=== PATIENT | male | born 1940 | race Caucasian/White ===

== ENCOUNTER 2020-01-12 08:32 | Outpatient (RCR) | payer MEDICARE, SELFPAY ==
[2019-11-24 16:16] VITALS: BMI 27.1
--- NOTE | 2019-12-01 07:07 | WPDHPUPDATE1 ---
History and Physical Update Update Date/Time: 12/01/19 07:07 History and Physical has been reviewed, including an updated exam of the patient. There are NO changes in the patient's condition. Risks, benefits, and alternatives have been discussed and questions answered. Patient agrees to proceed with procedure.
[2019-12-01 09:00] VITALS: BP 129/64; PULSE 68; TEMP 36.9; O2SAT 91
--- NOTE | 2019-12-01 09:29 | PM.PROC ---
Procedure Note - Detailed Date of procedure: 12/01/19 Pre-op diagnosis: Bladder wall CA Post-op diagnosis: same Procedure performed: With the patient in the supine position, a 16F Woodard catheter is placed using sterile technique. Using a protective facemask, gown and double layer of gloves Gemcitabine 2gm in 100cc saline is administered through the catheter/into the bladder. The catheter is then plugged. Patient was instructed to lie supine x20min, then to roll both the left and right x20 min. each. Total dwell time will be 60 min., after which the bladder will be drained and catheter removed. Anesthesia: none Surgeon: Lui Ding MD Estimated blood loss (mL): 0 Drains: Yes (16F Woodard) Packing: No Pathology: yes Complications: No immediate complications Condition: stable Disposition: PACU
[2019-12-01 09:30] VITALS: BP 111/65; PULSE 57; O2SAT 95
--- NOTE | 2019-12-01 09:44 | SUR.PHASEII ---
0940: Patient turned to the right side.
[2019-12-01 10:00] VITALS: BP 104/56; PULSE 59; O2SAT 99
--- NOTE | 2019-12-01 10:05 | SUR.PHASEII ---
1000: Patient turned on his left side.
[2019-12-01 10:30] VITALS: BP 114/78; PULSE 61; O2SAT 100
--- NOTE | 2019-12-01 10:52 | SUR.PHASEII ---
1020: Woodard was unclamped and hooked back up to drain the bladder. Patient got dressed and was discharged home at 1050.
--- NOTE | 2019-12-08 11:36 | WPDHPUPDATE1 ---
History and Physical Update Update Date/Time: 12/08/19 11:36 History and Physical has been reviewed, including an updated exam of the patient. There are NO changes in the patient's condition. Risks, benefits, and alternatives have been discussed and questions answered. Patient agrees to proceed with procedure.
[2019-12-14 07:30] VITALS: BP 123/67; PULSE 72; O2SAT 98
[2019-12-14] MEDS: SODIUM CHLORIDE 0.9% IV 23.7 ML, GEMCITABINE HCL 1,000 MG BLADDER ×2 (07:54→07:55)
[2019-12-14 08:26] VITALS: BP 121/69; PULSE 86
[2019-12-14 09:00] VITALS: BP 115/72; PULSE 68
[2019-12-14 09:20] VITALS: BP 104/58; PULSE 56
--- NOTE | 2019-12-22 06:58 | WPDHPUPDATE1 ---
History and Physical Update Update Date/Time: 12/22/19 06:58 History and Physical has been reviewed, including an updated exam of the patient. There are NO changes in the patient's condition. Risks, benefits, and alternatives have been discussed and questions answered. Patient agrees to proceed with procedure.
[2019-12-22] MEDS: SODIUM CHLORIDE 0.9% IV 23.7 ML, GEMCITABINE HCL 1,000 MG BLADDER ×2 (12:00→12:01)
[2019-12-22 12:23] VITALS: BP 149/77; PULSE 72; RESP 18; TEMP 36.4; O2SAT 98
--- NOTE | 2019-12-22 12:37 | PM.PROC ---
Procedure Note - Detailed Date of procedure: 12/22/19 Pre-op diagnosis: Bladder wall CA Post-op diagnosis: same Procedure performed: Catheter placement with Gemcitabine instillation. Description of procedure: With the patient in the supine position, a 16F Woodard catheter is placed using sterile technique. Using a protective facemask, gown and double layer of gloves Gemcitabine 2gm in 100cc saline is administered through the catheter/into the bladder. The catheter is then plugged. Patient was instructed to lie supine x20min, then to roll both the left and right x20 min. each. Total dwell time will be 60 min., after which the bladder will be drained and catheter removed. Surgeon: Lui Ding MD Estimated blood loss (mL): 0 Drains: Yes Packing: No Pathology: none sent Complications: No immediate complications Condition: stable Disposition: PACU
[2019-12-22 12:50] VITALS: BP 105/65; PULSE 56; RESP 16
--- NOTE | 2019-12-22 12:53 | SUR.PHASEII ---
1240; DR STONE INSERTED 16FR FIGUEROA AND INSTILLED CHEMO. PT ROTATED EVERY 20 MINUTES FROM BACK TO LEFT TO RIGHT SIDES.
[2019-12-22 13:20] VITALS: BP 107/75; PULSE 56; RESP 16; O2SAT 98
[2019-12-22 13:50] VITALS: BP 117/76; PULSE 57; RESP 16
--- NOTE | 2019-12-22 14:17 | SUR.PHASEII ---
1350; FIGUEROA DC'D. PT STATES HE IS LEAKING SOME. PT STATES I LEAK EVERY TIME I HAVE THIS DONE . SM AMT LEAKAGE NOTED. GENITAL AREA CLEANED WITH SOAP AND WATER. 1355; FIGUEROA EMPTIED THEN DC'D INTACT. 1415; INSTRUCTIONS GIVEN.
--- NOTE | 2019-12-29 06:48 | WPDHPUPDATE1 ---
History and Physical Update Update Date/Time: 12/29/19 06:48 History and Physical has been reviewed, including an updated exam of the patient. There are NO changes in the patient's condition. Risks, benefits, and alternatives have been discussed and questions answered. Patient agrees to proceed with procedure.
[2019-12-29 12:20] VITALS: BP 115/76; PULSE 57; RESP 18; TEMP 36.6; O2SAT 100
--- NOTE | 2019-12-29 12:29 | SUR.PHASEII ---
1225; PHARMACY NOTIFIED OF PT'S ARRIVAL.
[2019-12-29] MEDS: SODIUM CHLORIDE 0.9% IV 23.7 ML, GEMCITABINE HCL 1,000 MG BLADDER ×2 (12:39)
--- NOTE | 2019-12-29 12:43 | SUR.PHASEII ---
1240; NOTIFIED DR STONE PT AND CHEMO DRUG IS HERE. HE IS IN OR. WILL BE FINISHED IN 10-15 MINUTES. PT AND SPOUSE UPDATED.
--- NOTE | 2019-12-29 12:49 | SUR.PHASEII ---
1250; DR STONE PLACED 16FR FIGUEROA, INSTILLED CHEMO, THEN CATHETER CLAMPED, ALL PER DR STONE. PT LAYING ON BACK. 20 MINUTES.
[2019-12-29 12:50] VITALS: BP 107/53; PULSE 55; RESP 16; O2SAT 100
--- NOTE | 2019-12-29 13:14 | PM.PROC ---
Procedure Note - Detailed Date of procedure: 12/29/19 Pre-op diagnosis: Bladder wall CA Post-op diagnosis: same Procedure performed: Gemcitabine instillation into bladder Description of procedure: With the patient in the supine position, a 16F Woodard catheter is placed using sterile technique. Using a protective facemask, gown and double layer of gloves Gemcitabine 2gm in 100cc saline is administered through the catheter/into the bladder. The catheter is then plugged. Patient was instructed to lie supine x20min, then to roll both the left and right x20 min. each. Total dwell time will be 60 min., after which the bladder will be drained and catheter removed. Anesthesia: none and other Surgeon: Lui Ding MD Drains: No Packing: No Pathology: none sent Complications: No immediate complications Condition: stable Disposition: PACU
--- NOTE | 2019-12-29 13:16 | SUR.PHASEII ---
1315; PT TURNED TO RT SIDE.
[2019-12-29 13:20] VITALS: BP 97/58; PULSE 50; RESP 16; O2SAT 99
--- NOTE | 2019-12-29 13:38 | SUR.PHASEII ---
1335; TURNED TO LT SIDE.
[2019-12-29 13:50] VITALS: BP 102/64; PULSE 50; RESP 18
--- NOTE | 2019-12-29 14:38 | SUR.PHASEII ---
1355; BLADDER EMPTIED. FIGUEROA REMOVED INTACT. 141; DC INSTRUCTIONS GIVEN.
--- NOTE | 2020-01-05 07:19 | P.HP_ITS ---
History of Present Illness History of Present Illness Consent: Risks, benefits, and alternatives have been discussed and questions answered. Patient agrees to proceed with procedure. Chief complaint: Bladder wall CA Narrative: Alfredo Wright is a 79 year old male here for 5th of 6-planned bladder chemotherapy instillations for recurrent bladder cancer. Review of Systems Cardiovascular: Cardiovascular: Denies chest pain, Denies lightheadedness, Denies palpitations and Denies dyspnea Respiratory: Respiratory: Denies dyspnea Gastrointestinal: Gastrointestinal: Denies diarrhea, Denies nausea and Denies vomiting Genitourinary: Genitourinary: Denies hematuria and Denies dysuria Endocrine: Endocrine: Denies palpitations PMFSH Past Medical History Medical History Hematuria Surgical History Surgical History H/O prostatectomy Family History Family History Father Family history of liver disease Mother Family history of malignant neoplasm Social History Social History Smoking status: Never smoker Second hand tobacco smoke exposure: No Alcohol intake: current Meds Home Medications and Allergies Home Medications Medication Instructions Recorded Confirmed Type atorvastatin 20 mg tablet 20 mg PO DAILY 09/15/19 11/24/19 History hydrochlorothiazide 12.5 mg tablet 12.5 mg PO DAILY 09/15/19 11/24/19 History warfarin 1 mg tablet 2 mg PO WEEKLY 09/15/19 11/24/19 History warfarin 4 mg tablet 4 mg PO DAILY 09/15/19 11/24/19 History meclizine 25 mg tablet 25 mg PO TID PRN #90 tablet 12/22/19 Rx Allergies Allergy/AdvReac Type Severity Reaction Status Date / Time hydrocodone AdvReac Mild NAUSEA AND Verified 11/24/19 16:27 VOMITING morphine AdvReac Mild NAUSEA AND Verified 11/24/19 16:27 VOMITING codeine AdvReac Unknown Nausea and Verified 11/24/19 16:27 Vomiting Exam Const: General: no acute distress Resp: Effort & Inspection: normal respiratory effort GI: Inspection: non-distended GI Palp: No abdominal tenderness and No Guarding due to palpation present (GI) Auscultation: normal bowel sounds Assessment and Plan Assessment and plan (1) Bladder cancer: Code(s): C67.9 - Malignant neoplasm of bladder, unspecified Status: Acute Assessment and Plan: * Gemcitabine instillation
[2020-01-05 12:15] VITALS: BP 119/67; PULSE 78; RESP 18; TEMP 36.6; O2SAT 97
[2020-01-05] MEDS: SODIUM CHLORIDE 0.9% IV 23.7 ML, GEMCITABINE HCL 1,000 MG BLADDER ×2 (12:28→12:29)
--- NOTE | 2020-01-05 12:33 | SUR.PHASEII ---
1230; DR STONE INSERTED FIGUEROA. INSTILLED CHEMO INTO BLADDER. FIGUEROA CLAMPED. PT TOLERATED WELL. SPOUSE AT BEDSIDE. PT ON BACK FOR 20 MINUTES. THEN ROTATES TO LEFT SIDE AND RIGHT SIDE, 20 MINUTES EACH.
[2020-01-05 12:45] VITALS: BP 98/59; PULSE 58; RESP 16
[2020-01-05 13:15] VITALS: BP 96/57; PULSE 56; RESP 16
--- NOTE | 2020-01-05 13:29 | P.OP_ITS ---
Procedure Note - Detailed Date of procedure: 01/05/20 Pre-op diagnosis: Bladder wall CA Post-op diagnosis: same Procedure performed: Gemcitabine instillation into bladder. Description of procedure: With the patient in the supine position, a 16F Woodard catheter is placed using sterile technique. Using a protective facemask, gown and double layer of gloves Gemcitabine 2gm in 100cc saline is administered through the catheter/into the bladder. The catheter is then plugged. Patient was instructed to lie supine x20min, then to roll both the left and right x20 min. each. Total dwell time will be 60 min., after which the bladder will be dr elidia and catheter removed. Anesthesia: none Surgeon: Lui Ding MD Estimated blood loss (mL): 0 Drains: Yes (16F Woodard) Packing: No Pathology: none sent Complications: No immediate complications Condition: stable Disposition: PACU
[2020-01-05 13:50] VITALS: BP 92/53; PULSE 55; RESP 16
--- NOTE | 2020-01-10 16:17 | PM.IMHP ---
H&P: HPI History of Present Illness Chief complaint: Bladder wall CA Narrative: Alfredo Wright is a 79 year old male, well known to [facility] and our practice, with history of recurrent bladder tumors. Pt. presents for 6th of planned six bladder chemotherapy instillations. Review of Systems Cardiovascular: Cardiovascular: Denies chest pain, Denies lightheadedness, Denies palpitations and Denies dyspnea Respiratory: Respiratory: Denies dyspnea Gastrointestinal: Gastrointestinal: Denies diarrhea, Denies nausea and Denies vomiting Genitourinary: Genitourinary: Denies hematuria and Denies dysuria Endocrine: Endocrine: Denies palpitations PMFSH Past Medical History Medical History Hematuria Surgical History Surgical History H/O prostatectomy Family History Family History Father Family history of liver disease Mother Family history of malignant neoplasm Social History Social History Smoking status: Never smoker Second hand tobacco smoke exposure: No Alcohol intake: current Meds Home Medications and Allergies Home Medications Medication Instructions Recorded Confirmed Type atorvastatin 20 mg tablet 20 mg PO DAILY 09/15/19 11/24/19 History hydrochlorothiazide 12.5 mg tablet 12.5 mg PO DAILY 09/15/19 11/24/19 History warfarin 1 mg tablet 2 mg PO WEEKLY 09/15/19 11/24/19 History warfarin 4 mg tablet 4 mg PO DAILY 09/15/19 11/24/19 History meclizine 25 mg tablet 25 mg PO TID PRN #90 tablet 12/22/19 Rx Allergies Allergy/AdvReac Type Severity Reaction Status Date / Time hydrocodone AdvReac Mild NAUSEA AND Verified 11/24/19 16:27 VOMITING morphine AdvReac Mild NAUSEA AND Verified 11/24/19 16:27 VOMITING codeine AdvReac Unknown Nausea and Verified 11/24/19 16:27 Vomiting Exam Const: General: no acute distress Resp: Effort & Inspection: normal respiratory effort GI: Inspection: non-distended GI Palp: No abdominal tenderness and No Guarding due to palpation present (GI) Auscultation: normal bowel sounds Assessment and Plan Assessment and plan (1) Bladder cancer: Code(s): C67.9 - Malignant neoplasm of bladder, unspecified Status: Acute Assessment and Plan: Gemcitabine bladder instillation.
--- NOTE | 2020-01-12 06:33 | WPDHPUPDATE1 ---
History and Physical Update Update Date/Time: 01/12/20 06:33 History and Physical has been reviewed, including an updated exam of the patient. There are NO changes in the patient's condition. Risks, benefits, and alternatives have been discussed and questions answered. Patient agrees to proceed with procedure.
[2020-01-12 09:00] VITALS: BP 98/62; PULSE 81; RESP 14
--- NOTE | 2020-01-12 09:00 | PM.PROC ---
Procedure Note - Detailed Date of procedure: 01/12/20 Pre-op diagnosis: Bladder wall CA Post-op diagnosis: same Procedure performed: Gemcitabine instillation Description of procedure: With the patient in the supine position, a 16F Woodard catheter is placed using sterile technique. Using a protective facemask, gown and double layer of gloves Gemcitabine 2gm in 100cc saline is administered through the catheter/into the bladder. The catheter is then plugged. Patient was instructed to lie supine x20min, then to roll both the left and right x20 min. each. Total dwell time will be 60 min., after which the bladder will be drained and catheter removed. Anesthesia: none Surgeon: Lui Ding MD Estimated blood loss (mL): 0 Drains: No Packing: No Pathology: none sent Complications: No immediate complications Condition: stable Disposition: PACU
[2020-01-12 09:30] VITALS: BP 106/62; PULSE 51; RESP 14
[2020-01-12] MEDS: SODIUM CHLORIDE 0.9% IV 23.7 ML, GEMCITABINE HCL 1,000 MG BLADDER ×2 (09:52→09:53)
--- NOTE | 2020-01-12 09:55 | SUR.PHASEII ---
0995 [employer] INSERTED FIGUEROA CATHETER. DR STONE HERE AND INSTILLED CHEMOTHERAPY.FIGUEROA CATHETER PLUGGED, PT TURNED SIDE TO SIDE AND BACK FOR 20 MIN EACH. THEN FIGUEROA WILL BE DRAINED AND REMOVED.
[2020-01-12 10:00] VITALS: BP 104/61; PULSE 52; RESP 14
[2020-01-12 10:30] VITALS: BP 100/59; PULSE 51; RESP 14
[2020-01-12 11:00] VITALS: BP 115/75; PULSE 57; RESP 14; O2SAT 14
== END 2020-02-29 23:59 | disposition home or self-care (01) ==
LOC: ANHSURGERY 08:32
PROVIDERS: Urology; PCP Family Medicine; Visit Provider Urology
PROC: 3E1K78Z Irrigation of Genitourinary Tract using Irrigating Substance, Via Natural or Artificial Opening (ICD-10-PCS; CPT 51700; principal; 2019-12-01 09:00)
DX: C67.9 Malignant neoplasm of bladder, unspecified (principal)
CPT/HCPCS: 51720; J9201

== ENCOUNTER 2021-01-17 07:36 | Outpatient (CLI) | payer MEDICARE, SELFPAY ==
--- NOTE | 2021-01-17 07:40 | ECHO_ITS ---
Patient Info Name: Alfredo Wright Age: 80 years : 1940 Gender: Male Ht: 72 in Wt: 205 lbs BSA: 2.19 m2 HR: 65 bpm BP: 130 / 78 mmHg Heart Rhythm: Sinus Rhythm Technical Quality: Good Exam Date: 01/17/2021 8:02 AM Exam Location: [facility] Patient Status: Outpatient Admit Date: 01/17/2021 Staff Ordering Physician: Christopher Willis PA-C Pre K Lead Teacher: Juliet Valencia RDCS Attending Provider: Christopher Willis PA-C Referring Physician: Lazaro SOTO; Exam Type: CA echo doppler color flow Study Info Indications R60.0 - Localized edema Complete two-dimensional, color flow and Doppler transthoracic echocardiogram is performed. Strain analysis performed. Summary 1. Complete two-dimensional, color flow and Doppler transthoracic echocardiogram is performed. 2. Strain analysis performed. 3. Left ventricular chamber dimension is mildly enlarged. 4. Left ventricular systolic function is normal, estimated at 60-65%. 5. There is mild asymmetric septal increased left ventricular wall thickness. 6. The left ventricular diastolic function is grade I diastolic dysfunction. 7. Global longitudinal strain is borderline at -16 %. 8. Left atrial chamber dimension is mildly enlarged. 9. There is mild aortic valve regurgitation. 10. There is mild mitral valve regurgitation. 11. There is mild tricuspid valve regurgitation. 12. There is mild pulmonic regurgitation. Left Ventricle Left ventricular chamber dimension is mildly enlarged. Left ventricular systolic function is normal, estimated at 60-65%. There is mild asymmetric septal increased left ventricular wall thickness. The left ventricular diastolic function is grade I diastolic dysfunction. Global longitudinal strain is borderline at -16 %. Right Ventricle Right ventricular chamber dimension is normal. Right ventricular systolic function is normal. Left Atria Left atrial chamber dimension is mildly enlarged. Right Atria Right atrial chamber dimension is normal. Atrial Septum Intact interatrial septum visualized by color flow imaging. Aortic Valve The aortic valve is trileaflet. There is mild aortic valve sclerosis. There is no aortic valve stenosis. There is mild aortic valve regurgitation. Pulmonic Valve The pulmonic valve is normal. There is no pulmonic valve stenosis. There is mild pulmonic regurgitation. Mitral Valve The mitral valve has normal leaflets. There is no mitral valve stenosis. There is mild mitral valve regurgitation. Tricuspid Valve The tricuspid valve leaflets are normal. There is no significant tricuspid valve stenosis. There is mild tricuspid valve regurgitation. No pulmonary hypertension, estimated pulmonary arterial systolic pressure is 30 mmHg. Pericardium/Pleural The pericardium appears normal. There is no pericardial effusion. Inferior Vena Cava Normal inferior vena cava with >50% collapse upon inspiration consistent with normal right atrial pressure, 10 mmHg. Aorta The aortic root size at the sinus of Valsalva is borderline dilated. Left Ventricular Outflow Tract Name Value Normal LVOT 2D LVOT Diameter 2.0 cm LVOT Doppler
== END 2021-01-17 07:37 | disposition home or self-care (01) ==
LOC: ANHCARD 07:37
PROVIDERS: PCP Physician Assistant; Visit Provider Physician Assistant
DX: R60.0 Localized edema (principal); I08.3 Combined rheumatic disorders of mitral, aortic and tricuspid valves
CPT/HCPCS: 93306

== ENCOUNTER 2021-03-28 09:36 | Outpatient (CLI) | payer MEDICARE, SELFPAY ==
--- NOTE | ~2021-03-28 | MR_ITS ---
EXAMINATION: MR lumbar spine wo con EXAM DATE: 03/28/2021 10:50 INDICATION: Low back pain. Radiculopathy. Difficulty walking. TECHNIQUE: Multi-sequential, multiplanar MR images of the lumbar spine were obtained without contrast . Sagittal T1, T2, T2 fat saturation images. Axial T2 weighted images. Comparison is made to prior examination from 04/07/2015. FINDINGS: There is moderate to severe loss of the disc height at L2-3, moderate at L5-S1. There is 4 mm anterolisthesis L2 on L3 with chronic bilateral L2 spondylolysis. The conus medullaris terminates at the L1/2 level and has normal signal intensity and morphology. There are no suspicious marrow sig nal abnormalities. Renal cysts. Mild lumbar levoscoliosis. Level by level evaluation: T12-L1: Disc does not extend beyond the endplate margin. Facet arthropathy: Mild. Neural foraminal stenosis: No stenosis. Central canal stenosis: No stenosis. L1-L2: Disc does not extend beyond the endplate margin. Facet arthropathy: Mild to moderate. Neural foraminal stenosis: No stenosis. Central canal stenosis: No stenosis. L2-L3: There is a large diffuse disc bulge. Facet arthropathy: Moderate to severe. Neural foraminal stenosis: Moderate to severe bilateral. Central canal stenosis: Mild to moderate. L3-L4: There is a moderate diffuse disc bulge. Facet arthropathy: Moderate . Ligamentum flavum enlargement. Neural foraminal stenosis: Mild to moderate bilateral. Central canal stenosis: Mild to moderate. L4-L5: There is a moderate diffuse disc bulge. Facet arthropathy: Mild to moderate. Neural foraminal stenosis: Moderate to severe left, moderate right. Central canal stenosis: Mild to moderate. L5-S1: There is a moderate diffuse disc bulge. Facet arthropathy: Mild to moderate. Neural foraminal stenosis: Moderate to severe bilateral. Central canal stenosis: Mild. IMPRESSION: 1. Chronic L2 spondylolysis, grade 1 anterolisthesis and moderate to severe neural foraminal stenosi s L2/3. 2. Moderate to severe neural foraminal stenosis bilaterally L5-S1 and on the left at L4-5. 3. Lesser spondylosis above. Reviewed, dictated and finalized at location A. IMPRESSION: 1. Chronic L2 spondylolysis, grade 1 anterolisthesis and moderate to severe ne ural foraminal stenosis L2/3. 2. Moderate to severe neural foraminal stenosis bilaterally L5-S1 and on the l eft at L4-5. 3. Lesser spondylosis above.
== END 2021-03-28 09:37 | disposition home or self-care (01) ==
PROVIDERS: PCP Family Medicine; Visit Provider Nurse Practitioner Family
DX: M54.5 Low back pain (principal); M43.16 Spondylolisthesis, lumbar region; M54.16 Radiculopathy, lumbar region; M48.061 Spinal stenosis, lumbar region without neurogenic claudication
CPT/HCPCS: 72148

== ENCOUNTER 2021-05-15 13:46 | Emergency (ER) | payer MEDICARE, SELFPAY ==
--- NOTE | ~2021-05-15 | XR_ITS ---
EXAMINATION: XR lumbar spine 2-3V DATE: 05/15/2021 15:35 INDICATION: Low back pain. Fall. TECHNIQUE: 3 views of lumbar spine were obtained. COMPARISON: Lumbar spine MRI 03/28/2021 FINDINGS: There is 8 degrees levocurvature of lumbar spine. There is 3 mm anterolisthesis of L2 on L3 . There is a compression fracture of L1 with 1/5 loss of height. There is severely decreased disc hei ght at L2-L3 and L5-S1 and mildly decreased disc height at L4-L5. There are endplate osteophytes at a ll levels. There is multilevel facet joint osteoarthritis, severe at some levels. IMPRESSION: 1. L1 compression fracture, new from 03/28/2021. 2. Severe lumbar spondylosis. Reviewed, dictated and finalized at location A.
--- NOTE | ~2021-05-15 | XR_ITS ---
XR hip RT 2V w AP pelvis 05/15/2021 15:35 Indication: Right hip pain after fall Procedure: AP pelvis and 2 views right hip Comparison: No prior studies for comparison. 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 There is lower lumbar spondylosis with levoscoliosis. Mild osteitis pubis. No fracture or traumatic malalignment. Impression: 1: No acute fracture. Reviewed, dictated and finalized at location A. Impression: 1: No acute fracture.
[2021-05-15 14:44] VITALS: BP 120/64; PULSE 78; RESP 15; TEMP 36.4; O2SAT 98
--- NOTE | 2021-05-15 19:07 | ED.FALL ---
HPI - Fall General Chief Complaint: Fall Stated Complaint: low back pain, fall Time Seen by Provider: 05/15/21 18:29 Source: patient Mode of arrival: ambulatory Limitations: no limitations History of Present Illness HPI Narrative: Patient is an 80 year old male who presents with complaints of lower back pain and right hip pain after a fall approximately 3 days ago. Patient reports tripping on a hose and falling on glass. Patient reports that he is currently taking anticoagulation medication. He denies hitting head or neck, denies dizziness prior to fall.. He denies chest pain or shortness of breath. Patient denies all other complaints at this time. Patient reports taking Tylenol with moderate relief of pain. Related Data Home Medications Medication Instructions Recorded Confirmed atorvastatin 20 mg tablet 20 mg PO DAILY 09/15/19 03/13/21 warfarin 1 mg tablet 2 mg PO WEEKLY 09/15/19 03/13/21 warfarin 4 mg tablet 4 mg PO DAILY 09/15/19 03/13/21 acetaminophen 325 mg tablet 325 mg PO Q6H PRN 01/10/21 03/13/21 carboxymethylcellulose sodium 1 % 1 drp EACH EYE BID 01/10/21 03/13/21 eye liquid gel drops Allergies Allergy/AdvReac Type Severity Reaction Status Date / Time hydrocodone AdvReac Mild NAUSEA AND Verified 05/15/21 18:20 VOMITING morphine AdvReac Mild NAUSEA AND Verified 05/15/21 18:20 VOMITING codeine AdvReac Unknown Nausea and Verified 05/15/21 18:20 Vomiting Review of Systems Review of Systems: Narrative: CONSTITUTIONAL: Denies fever, chills, or sweats. EYES: Denies visual changes, redness, or discharge. ENT: Denies rhinorrhea, congestion, sore throat, or otalgia. CARDIOVASCULAR: Denies chest pain, palpitations, or edema. RESPIRATORY: Denies cough or dyspnea. GASTROINTESTINAL: Denies abdominal pain, nausea, vomiting, or diarrhea. GENITOURINARY: Denies dysuria or hematuria. SKIN: Denies rash or itching. MUSCULOSKELETAL: Reports lower back pain and right hip pain NEUROLOGIC: Denies headache, numbness, dizziness, or weakness. PSYCHIATRIC: Denies anxiety or depression. [facility] Past Medical History Medical History (Updated 05/15/21 @ 19:13 by GEORGI Gillespie) Hematuria Surgical History Surgical History H/O prostatectomy Family History Family History Father Family history of liver disease Mother Family history of malignant neoplasm Social History Social History Smoking status: Former smoker Second hand tobacco smoke exposure: No Alcohol intake: never Substance use: never Substance use type: does not use Gender identity (if verbalized by the patient): Male Spiritual care concerns: No Agree to blood products: Yes Comments At the time of signature, I have reviewed and agree with nursing past medical, surgical, social, and family history unless otherwise noted. Please see nursing chart for further information. There is no relevant family history pertinent to the presenting complaint. Exam Narrative: Exam Narrative: GENERAL: Well-appearing, well-nourished, and in no acute distress. HEAD: Normocephalic, atraumatic. EYES: EOMI. No redness or drainage. Conjunctiva are normal. ENT: Mucous membranes pink and moist. CHEST: No respiratory distress. HEART: Regular rate and rhythm. GI: Soft, nontender without rebound, or guarding. MUSCULOSKELETAL: Tenderness with palpation to midline lumbar spine, no step-offs palpated. EXTREMITIES: Normal range of motion. No edema. SKIN: Warm, dry, no rash. NEURO: No focal deficits. Alert and oriented x3. Gait steady. PSYCH: Normal affect. No signs of depression or anxiety. Course Vital Signs Vital signs: Vital Signs Temperature 36.4 C 05/15/21 14:44 Pulse Rate 78 05/15/21 14:44 Respiratory Rate 15 05/15/21 14:44 Blood Pressure 120/64 05/15/21
[2021-05-15 19:27] VITALS: BP 122/60; PULSE 68; RESP 18; O2SAT 99
[2021-05-15 20:16] VITALS: BP 112/89; PULSE 87; RESP 20; O2SAT 96
== END 2021-05-15 20:18 | disposition home or self-care (01) ==
PROVIDERS: Emergency Provider Nurse Practitioner
DX: S32.018A Other fracture of first lumbar vertebra, initial encounter for closed fracture (principal); Z87.891 Personal history of nicotine dependence; Z79.01 Long term (current) use of anticoagulants; M47.816 Spondylosis without myelopathy or radiculopathy, lumbar region; W18.09XA Striking against other object with subsequent fall, initial encounter
CPT/HCPCS: 72100; 73502; 99284

== ENCOUNTER 2021-07-29 14:35 | Outpatient (CLI) | payer MEDICARE, SELFPAY ==
--- NOTE | ~2021-07-29 | XR_ITS ---
EXAMINATION: XR lumbar spine 2-3V EXAM DATE: 07/29/2021 15:21 INDICATION: S32.000A - Wedge compression fracture in May, check up. TECHNIQUE: Lumber spine frontal, lateral, lateral L5-S1 projections for interpretation. Comparison is made to prior examination from 05/15/2021. FINDINGS: There is moderate anterior wedging of the L1 vertebral body, mild interval progression com pared to previous examination in May. Interval development of mild to moderate anterior wedging of t he T12 vertebral body at the superior endplate. There is moderate to severe disc disease at L2-3 with 4 mm anterolisthesis. Moderate to severe disc d isease at L5-S1. Mild disc disease L3-4 and L4-5. Overall moderate lumbar facet arthropathy. Sacrum, sacroiliac joints, sacral arcuate lines are intact. Mild lumbar levoscoliosis. Paraspinal soft tissue is unremarkable. IMPRESSION: 1. Mild interval progression in L1 compression fracture. 2. Interval development of T12 compression fracture. 3. Overall moderate lumbar spondylosis as above. Reviewed, dictated and finalized at location B.
== END 2021-07-29 14:36 | disposition home or self-care (01) ==
LOC: ANHIMG 14:42
PROVIDERS: PCP Family Medicine; Visit Provider Family Medicine
DX: S32.000A Wedge compression fracture of unspecified lumbar vertebra, initial encounter for closed fracture (principal); X58.XXXA Exposure to other specified factors, initial encounter; M47.896 Other spondylosis, lumbar region
CPT/HCPCS: 72100

== ENCOUNTER 2022-12-08 12:03 | Outpatient (CLI) | payer MEDICARE, SELFPAY ==
--- NOTE | ~2022-12-08 | XR_ITS ---
EXAMINATION: XR abdomen/kub 1V DATE: 12/08/2022 12:38 INDICATION: Unspecified abdominal pain. Left flank pain. TECHNIQUE: A supine view of the abdomen on 2 radiographs was obtained. COMPARISON: CT abdomen and pelvis 08/04/2019 FINDINGS: There are no dilated loops of bowel. There is a moderate volume of stool in the colon. Ther e are phleboliths in the pelvis. There are surgical clips in the pelvis. IMPRESSION: 1. Normal bowel gas pattern. Reviewed, dictated and finalized at location A. N UP PERSON
== END 2022-12-08 12:04 | disposition home or self-care (01) ==
PROVIDERS: PCP Family Medicine; Visit Provider Physician Assistant Medical
DX: R10.9 Unspecified abdominal pain (principal)
CPT/HCPCS: 74018

== ENCOUNTER 2023-06-17 12:15 | Outpatient (CLI) | payer MEDICARE, SELFPAY ==
--- NOTE | ~2023-06-17 | MR_ITS ---
EXAMINATION: MR brain/brain stem wo/w con DATE: 06/17/2023 13:18 INDICATION: Personal history of transient ischemic attack. Amnesia. TECHNIQUE: Magnetic resonance imaging (MRI) of the brain and brainstem was performed without and with 17 mL MultiHance intravenous contrast. COMPARISON: Brain MRI 02/05/2012 FINDINGS: There are old infarcts in the cerebellum, right worse than left. There is no intracranial h emorrhage, acute infarction, or abnormal intracranial mass lesion. There are scattered areas of nonsp ecific increased T2-weighted signal intensity in the cerebral white matter, which is within normal li mits for the patient's age. The ventricles are normal in size. There is mild mucosal thickening in th e ethmoid sinuses. There are likely changes of ocular lens replacement surgeries. The mastoid air jeremy ls are normal. IMPRESSION: 1. Old infarcts in the cerebellum. Reviewed, dictated and finalized at location A.
== END 2023-06-17 12:16 | disposition home or self-care (01) ==
PROVIDERS: PCP Family Medicine; Visit Provider Physician Assistant
DX: R29.90 Unspecified symptoms and signs involving the nervous system (principal); R41.3 Other amnesia; Z86.73 Personal history of transient ischemic attack (TIA), and cerebral infarction without residual deficits
CPT/HCPCS: 70553; A9577

== ENCOUNTER 2023-07-08 09:23 | Emergency (ER) | payer MEDICARE, SELFPAY ==
[2023-07-08] VITALS (16 sets, daily range): BP systolic 108–133; BP diastolic 63–85; PULSE 56–79; RESP 9–18; TEMP 37.5; O2SAT 97–98
--- NOTE | ~2023-07-08 | CT_ITS ---
EXAMINATION: CT abdomen pelvis w con DATE: 07/08/2023 11:27 INDICATION: Epigastric abdominal pain, dark stools. Nausea. TECHNIQUE: Computed tomography (CT) of the abdomen and pelvis was performed with 100 CC Omnipaque 350 intravenous contrast. Automated exposure control and iterative reconstruction technique were employe d. Exam dose: 509.04 mGy-cm total exam DLP. COMPARISON: 12/08/2022 KUB 08/04/2019 CT abdomen pelvis FINDINGS: There are patchy infiltrates in the lingula, with slight patchy infiltrate in the middle lo be and more prominent patchy infiltrates in the lower lobes, left greater than right. Normal heart size. Coronary artery calcification. No pericardial or pleural effusion. The liver, gallbladder, bile ducts, pancreas, pancreatic duct, spleen and adrenal glands are unremark able. There are multiple bilateral renal cysts of variable size, largest measuring up to 4.5 cm. Approximately 3.3 mm nonobstructing upper pole left renal calculus. No other urinary tract calculus o r hydroureteronephrosis is evident. The urinary bladder is unremarkable. Postoperative change from prostatectomy. The urinary bladder appears unremarkable. No abdominal aortic aneurysm. No intraperitoneal or retroperitoneal or pelvic mass lesion or adenopat hy or ascites is detected. Normal appendix. There is diverticulosis of the sigmoid and to a lesser extent descending colon; no C T evidence of diverticulitis. Fat-containing left inguinal hernia. Small fat-containing umbilical hernia. Diffuse idiopathic skeletal hyperostosis of the thoracic spine. Since 08/04/2019 there is mild to moderate anterior wedge compression fracture of T12 and moderately s evere burst fracture deformity of L1. Severe degenerative disc disease and minimal anterolisthesis is again noted at L2-3. Severe degenerat sebas disc disease and slight retrolisthesis is again noted at L5-S1. IMPRESSION: Patchy bilateral pulmonary infiltrates suggesting multifocal pneumonia Multiple bilateral renal cysts 3.3 mm nonobstructing upper pole left renal calculus Normal appendix Diverticulosis of the colon; no evidence of diverticulitis New T12 compression and L1 burst fracture since 08/04/2019 Reviewed, dictated and finalized at Location A. Reviewed, dictated and finalized at location B. IMPRESSION: Patchy bilateral pulmonary infiltrates suggesting multifocal pneum onia Multiple bilateral renal cysts 3.3 mm nonobstructing upper pole left renal calculus Normal appendix Diverticulosis of the colon; no evidence of diverticulitis New T12 compression and L1 burst fracture since 08/04/2019
[2023-07-08 10:18] LABS: Basophils Percent Auto 0.4 % (0.2-1.2); Eosinophils Percent Auto 0.7 % (0-4.4); Hematocrit 40.9 % (42.0-52.0); Hemoglobin 13.3 g/dL (14.0-18.0); Immature Granulocyte Absolute 0.03 K/mm3 (0.00-0.031); Immature Granulocyte Percent A 0.5 % (0-0.5); Lymphocytes Absolute Auto 1.13 K/mm3 (0.9-3.2); Lymphocytes Percent Auto 20.1 % (18.3-44.2); Mean Corpuscular HGB Conc 32.5 g/dl (32-36); Mean Corpuscular Hemoglobin 29.6 pg (26-34); Mean Corpuscular Volume 91.1 fl (80-100); Mean Platelet Volume 9.4 fl (7.4-10.4); Monocytes Absolute Auto 0.6 K/mm3 (0.1-0.6); Monocytes Percent Auto 11.2 % (2.6-8.5); Neutrophils Absolute Auto 3.8 K/mm3 (1.3-6.7); Neutrophils Percent Auto 67.1 % (45.5-73.1); Platelet Count Result 238 k/mm3 (150-375); Red Blood Count 4.49 M/mm3 (4.6-6.20); Red Cell Distribution Width 13.2 % (11.5-14.5); White Blood Count 5.6 K/mm3 (4.5-10.0)
--- NOTE | 2023-07-08 10:19 | ED.GENADULT ---
HPI - General Adult General Chief complaint: GI Bleed Stated complaint: black stools Time Seen by Provider: 07/08/23 09:27 Source: patient Mode of arrival: ambulatory Limitations: no limitations History of Present Illness HPI narrative: This is an 82-year-old male who presents to the ED with chief complaint of dark stools for the past 3 days. Patient states that stools are dark and black in nature. States he is on warfarin regularly. Reports having flulike symptoms and a upset stomach for the past week. Reports nausea and a little bit of epigastric pain. States he has been taking Pepto-Bismol today but feels like the dark stool started before taking the Pepto. He reports stools are loose and have been more like diarrhea over the past couple of days. Patient states that he had 3 episodes of vomiting 2 days ago and none since. He is here with his who states she has had flulike symptoms as well for the past week. Denies fevers, chills, chest pain, shortness of breath, hematemesis, urinary problems, back pain. Related Data Home Medications Medication Instructions Recorded Confirmed atorvastatin 20 mg tablet 20 mg PO DAILY 09/15/19 06/08/23 acetaminophen 325 mg tablet 325 mg PO Q6H PRN 01/10/21 06/08/23 (Tylenol) carboxymethylcellulose sodium 1 % 1 drp EACH EYE BID 01/10/21 06/08/23 eye liquid gel drops warfarin 1 mg tablet 2 mg PO WEEKLY 03/28/22 06/08/23 warfarin 4 mg tablet 4 mg PO DAILY 03/28/22 06/08/23 Allergies Allergy/AdvReac Type Severity Reaction Status Date / Time hydrocodone AdvReac Mild NAUSEA AND Verified 07/08/23 09:50 VOMITING morphine AdvReac Mild NAUSEA AND Verified 07/08/23 09:50 VOMITING codeine AdvReac Unknown Nausea and Verified 07/08/23 09:50 Vomiting Review of Systems Review of Systems: All systems as dictated in [facility] Past Medical History Medical History Bladder cancer Hematuria History of stroke Hyperlipidemia Lumbar compression fracture SONG (obstructive sleep apnea) Paroxysmal atrial fibrillation Primary hypertension Surgical History Surgical History H/O prostatectomy Family History Family History Father Family history of liver disease Mother Family history of malignant neoplasm Social History Social History Social History: Living at home with his . Does have kids in the area. Smoking status: Never smoker Second hand tobacco smoke exposure: No Alcohol intake: never Substance use: never Substance use type: does not use Lack of Transportation: No Lack of Food: Never True Current Housing: I Have Housing Concerned About Future Housing: No Difficulty Paying Gas/Electric Bills: No Difficulty Paying for Meds: No Currently Unemployed: No Education: High School Diploma/GED Difficulty w/ Childcare or Family Care: No Living arrangements: with family Occupation/Education: retired Gender identity (if verbalized by the patient): Male Sexual Orientation (if Verbalized by the Patient): Straight or Heterosexual Spiritual care concerns: No Agree to blood products: Yes Exam Narrative: GENERAL: Well-appearing, well-nourished, and in no acute distress. HEAD: Normocephalic, atraumatic. EYES: PERRLA and EOMI. ENT: Nares clear, no rhinorrhea or epistaxis. Mucous membranes moist. Oropharynx without tonsillar hypertrophy exudate or other lesions. NECK: Supple. No adenopathy or masses. CHEST: No respiratory distress. Crackles in the left base. Saturating 98% on room air. HEART: Regular rate and rhythm. No murmur heard. Normal peripheral pulses. ABDOMEN: Tenderness in the epigastrium. Soft, otherwise nontender, nondistended, normal active bowel sounds. Negative peritoneal signs. MS
[2023-07-08 10:28] LABS: INR 2.2; Prothrombin Time 26.4 Seconds (11.1-14.7)
[2023-07-08 10:29] LABS: Partial Thromboplastin Time 47.7 SECONDS (22.3-36.8)
[2023-07-08 10:35] LABS: Alanine Aminotransferase 28 U/L (6-50); Albumin Level 3.7 g/dL (3.5-5.1); Alkaline Phosphatase 66 U/L (38-126); Anion Gap 6 mmol/L (8-16); Aspartate Amino Transferase 37 U/L (17-59); Bilirubin,Total 0.6 mg/dL (0.2-1.3); Blood Urea Nitrogen 18 mg/dL (9-20); Calcium 8.4 mg/dL (8.4-10.2); Carbon Dioxide 29 mmol/L (22-30); Chloride 101 mmol/L (98-107); Estimated CRCL calculation 50 ml/min; Estimated Glomerular Filt Rate > 60; Glucose 93 mg/dL (65-110); Lipase 125 U/L (23-300); Magnesium 1.9 mg/dL (1.6-2.3); Potassium 4.3 mmol/L (3.4-5.0); Sodium 136 mmol/L (137-145)
[2023-07-08] MEDS: ONDANSETRON INJ 4 MG/2 ML VIAL IV PUSH (11:37)
--- NOTE | 2023-07-08 12:47 | WPDNEUROSGPN ---
Subjective Date/time seen: 07/08/23 12:47 Interval history: Asked to review patient's CT of the abdomen pelvis which was performed for GI reasons. Incidentally identified compresion fracture of L1 with 50% loss of height. There is no involvement of the pedicles and this has the appearance of a stable fracture. Management should be symptomatic. No need for bracing unless the patinet's back pain worsened. If pain worsened could consider referral to pain management. No need for admission for this finding. Objective Data Vital Signs Vital Signs: Vital Signs - 24 hr 07/08/23 09:40 07/08/23 10:13 07/08/23 09:31 Temperature 99.5 F Pulse Rate 70 67 79 Respiratory Rate 14 14 14 Blood Pressure 132/77 110/82 132/77 Pulse Oximetry 97 97 Oxygen Delivery Room Air 07/08/23 09:45 07/08/23 09:46 07/08/23 10:00 Temperature Pulse Rate 67 67 67 Respiratory Rate 17 13 13 Blood Pressure 115/63 Pulse Oximetry Oxygen Delivery 07/08/23 10:01 07/08/23 10:15 07/08/23 10:16 Temperature Pulse Rate 69 66 67 Respiratory Rate 9 L 14 14 Blood Pressure 110/82 108/66 Pulse Oximetry Oxygen Delivery 07/08/23 10:30 07/08/23 10:31 07/08/23 10:49 Temperature Pulse Rate 65 66 61 Respiratory Rate 11 L 13 14 Blood Pressure 111/64 133/83 Pulse Oximetry Oxygen Delivery 07/08/23 11:00 07/08/23 11:02 07/08/23 11:15 Temperature Pulse Rate 70 69 Respiratory Rate 18 16 13 Blood Pressure 125/76 Pulse Oximetry Oxygen Delivery Meds/Results Radiology Results: ITS Impressions Abdomen/Pelvis CT 07/08/23 11:30 IMPRESSION: Patchy bilateral pulmonary infiltrates suggesting multifocal pneumonia Multiple bilateral renal cysts 3.3 mm nonobstructing upper pole left renal calculus Normal appendix Diverticulosis of the colon; no evidence of diverticulitis New T12 compression and L1 burst fracture since 08/04/2019 Labs Labs: Laboratory Results - last 24 hr 07/08/23 10:11 WBC 5.6 RBC 4.49 L Hgb 13.3 L Hct 40.9 L MCV 91.1 MCH 29.6 MCHC 32.5 RDW 13.2 Plt Count 238 MPV 9.4 Immature Gran % (Auto) 0.5 Neut % (Auto) 67.1 Lymph % (Auto) 20.1 Hyde % (Auto) 11.2 H Eos % (Auto) 0.7 Baso % (Auto) 0.4 Lymph # (Auto) 1.13 Hyde # (Auto) 0.6 Eos # (Auto) 0.0 Baso # (Auto) 0.0 Abs Immat Gran (auto) 0.03 Absolute Neuts (auto) 3.8 Absolute Nucleated RBC 0.0 Nucleated RBC % 0.0 PT 26.4 H INR 2.2 APTT 47.7 H Sodium 136 L Potassium 4.3 Chloride 101 Carbon Dioxide 29 Anion Gap 6 L BUN 18 Creatinine 1.10 Estim Creat Clear Calc 50 Estimated GFR > 60 Glucose 93 Calcium 8.4 Magnesium 1.9 Total Bilirubin 0.6 AST 37 ALT 28 Alkaline Phosphatase 66 Total Protein 7.0 Albumin 3.7 Lipase 125 Blood Type A Positive Antibody Screen Negative
== END 2023-07-08 13:10 | disposition home or self-care (01) ==
PROVIDERS: Emergency Provider Physician Assistant; PCP Family Medicine
DX: J18.9 Pneumonia, unspecified organism (principal); M48.54XA Collapsed vertebra, not elsewhere classified, thoracic region, initial encounter for fracture; E78.5 Hyperlipidemia, unspecified; I48.0 Paroxysmal atrial fibrillation; I10 Essential (primary) hypertension; Z79.01 Long term (current) use of anticoagulants; Z86.73 Personal history of transient ischemic attack (TIA), and cerebral infarction without residual deficits; Z85.51 Personal history of malignant neoplasm of bladder
CPT/HCPCS: 36415; 74177; 80053; 83690; 83735; 85025; 85610; 85730; 86850; 86900; 86901; 96374; 99284; J2405; Q9967

== ENCOUNTER 2023-07-09 13:28 | Emergency (ER) | payer MEDICARE, SELFPAY ==
[2023-07-09 13:31] VITALS: BP 124/60; PULSE 74; RESP 18; TEMP 36.9; O2SAT 97
[2023-07-09 16:17] VITALS: BP 144/92; PULSE 75; TEMP 36.7; O2SAT 98
[2023-07-09 19:28] VITALS: BP 138/64; PULSE 62; RESP 15; O2SAT 98
--- NOTE | 2023-07-09 19:33 | ECG_ITS ---
Measurements Intervals [place] Rate: 55 P: 37 OK: 159 QRS: -7 QRSD: 88 T: 23 QT: 404 QTc: 388 Interpretive Statements SINUS BRADYCARDIA ATRIAL PREMATURE COMPLEX BASELINE ARTIFACT- I, II, AVR BORDERLINE ECG COMPARED TO ECG 03/10/2019 12:01:42 NO SIGNIFICANT CHANGES Electronically Signed On 07-10-2023 6:44:15 CDT by Mahad Trevizo D.O.
[2023-07-09 19:52] LABS: Basophils Percent Auto 0.3 % (0.2-1.2); Eosinophils Percent Auto 0.3 % (0-4.4); Hematocrit 42.6 % (42.0-52.0); Hemoglobin 13.6 g/dL (14.0-18.0); Immature Granulocyte Absolute 0.02 K/mm3 (0.00-0.031); Immature Granulocyte Percent A 0.3 % (0-0.5); Lymphocytes Absolute Auto 1.51 K/mm3 (0.9-3.2); Mean Corpuscular HGB Conc 31.9 g/dl (32-36); Mean Corpuscular Hemoglobin 29.2 pg (26-34); Mean Corpuscular Volume 91.6 fl (80-100); Mean Platelet Volume 9.4 fl (7.4-10.4); Monocytes Absolute Auto 0.7 K/mm3 (0.1-0.6); Monocytes Percent Auto 10.8 % (2.6-8.5); Neutrophils Absolute Auto 4.3 K/mm3 (1.3-6.7); Neutrophils Percent Auto 65.3 % (45.5-73.1); Platelet Count Result 266 k/mm3 (150-375); Red Blood Count 4.65 M/mm3 (4.6-6.20); Red Cell Distribution Width 13.2 % (11.5-14.5); White Blood Count 6.6 K/mm3 (4.5-10.0)
--- NOTE | 2023-07-09 19:52 | ED.GENADULT ---
HPI - General Adult General Chief complaint: Weakness Stated complaint: wants to be admitted for pneumonia Time Seen by Provider: 07/09/23 19:26 History of Present Illness HPI narrative: Patient is a 82-year-old gentleman who presents emergency department with chief complaint of generalized weakness. Patient reports that he was seen in the emergency department yesterday diagnosed with pneumonia and was given the option to stay in the hospital patient at that time opted for outpatient therapy patient reports today he still feels weak and has not had any significant improvement and decided to come back in the hospital to see if he could be admitted. The patient denies chest pain denies shortness of breath patient denies vomiting or diarrhea Related Data Home Medications Medication Instructions Recorded Confirmed atorvastatin 20 mg tablet 20 mg PO DAILY 09/15/19 06/08/23 acetaminophen 325 mg tablet 325 mg PO Q6H PRN 01/10/21 06/08/23 (Tylenol) carboxymethylcellulose sodium 1 % 1 drp EACH EYE BID 01/10/21 06/08/23 eye liquid gel drops warfarin 1 mg tablet 2 mg PO WEEKLY 03/28/22 06/08/23 warfarin 4 mg tablet 4 mg PO DAILY 03/28/22 06/08/23 Allergies Allergy/AdvReac Type Severity Reaction Status Date / Time hydrocodone AdvReac Mild NAUSEA AND Verified 07/08/23 09:50 VOMITING morphine AdvReac Mild NAUSEA AND Verified 07/08/23 09:50 VOMITING codeine AdvReac Unknown Nausea and Verified 07/08/23 09:50 Vomiting Review of Systems Review of Systems: A 10 system review of systems was completed on the patient and is negative except for what is stated in the HPI. Nursing and ancillary documentation was reviewed. [facility] Past Medical History Medical History Bladder cancer Hematuria History of stroke Hyperlipidemia Lumbar compression fracture SONG (obstructive sleep apnea) Paroxysmal atrial fibrillation Primary hypertension Surgical History Surgical History H/O prostatectomy Family History Family History Father Family history of liver disease Mother Family history of malignant neoplasm Social History Social History Social History: Living at home with his . Does have kids in the area. Smoking status: Never smoker Second hand tobacco smoke exposure: No Alcohol intake: never Substance use: never Substance use type: does not use Lack of Transportation: No Lack of Food: Never True Current Housing: I Have Housing Concerned About Future Housing: No Difficulty Paying Gas/Electric Bills: No Difficulty Paying for Meds: No Currently Unemployed: No Education: High School Diploma/GED Difficulty w/ Childcare or Family Care: No Living arrangements: with family Occupation/Education: retired Gender identity (if verbalized by the patient): Male Sexual Orientation (if Verbalized by the Patient): Straight or Heterosexual Spiritual care concerns: No Agree to blood products: Yes Exam Narrative: GENERAL: Well-appearing, well-nourished, and in no acute distress. HEAD: Normocephalic, atraumatic. EYES: PERRLA and EOMI. ENT: Nares clear, no rhinorrhea or epistaxis. Mucous membranes moist. NECK: Supple. CHEST: Clear to auscultation. No respiratory distress. HEART: Regular rate and rhythm. No murmur heard. Normal peripheral pulses. ABDOMEN: Soft, nontender, nondistended, normal active bowel sounds. EXTREMITIES: Normal range of motion. No edema. SKIN: Warm, dry, no rash. NEURO: No focal deficits. Alert and oriented x3. PSYCH: Normal mood and affect. Course Vital Signs Vital signs: Vital Signs Temperature 36.9 C 07/09/23 13:31 Pulse Rate 74 07/09/23 13:31 Respiratory Rate 18 07/09/23 13:31 Blood Pre
[2023-07-09 20:04] LABS: Alanine Aminotransferase 29 U/L (6-50); Alkaline Phosphatase 68 U/L (38-126); Anion Gap 5 mmol/L (8-16); Aspartate Amino Transferase 41 U/L (17-59); Bilirubin,Total 0.9 mg/dL (0.2-1.3); Blood Urea Nitrogen 15 mg/dL (9-20); Calcium 8.8 mg/dL (8.4-10.2); Carbon Dioxide 30 mmol/L (22-30); Chloride 103 mmol/L (98-107); Estimated CRCL calculation 57 ml/min; Estimated Glomerular Filt Rate > 60; Glucose 96 mg/dL (65-110); Potassium 4.2 mmol/L (3.4-5.0); Sodium 138 mmol/L (137-145)
[2023-07-09 20:06] LABS: Appearance Urine Clear (Clear); Bacteria Urine None Seen /hpf; Bilirubin Urine Negative (Negative); Blood Urine 1+ (Negative); Color Urine Yellow (Yellow); Glucose Urine UA Negative (Negative); Ketones Urine Negative (Negative); Leukocyte Esterase Ur Negative LEU/UL (Negative); Nitrate Urine Negative (Negative); Non Pathogenic Casts 0-2; Protein Urine Trace mg/dL (Negative); Specific Grav Ur 1.012 (1.001-1.035); Squamous Epithelial Cell Urine None seen /hpf (Few); Urobilinogen Urine 0.2 mg/dL (<2.0); WBC Urine 0-5 /hpf
[2023-07-09 20:07] LABS: INR 2.2; Prothrombin Time 26.3 Seconds (11.1-14.7)
[2023-07-09 20:08] LABS: Partial Thromboplastin Time 44.3 SECONDS (22.3-36.8)
[2023-07-09 20:09] LABS: Add Urine Microscopic? YES
[2023-07-09 20:16] LABS: NT Pro B Type Natriuretic Pept 70 pg/mL (19.9-100); Troponin I < 0.012 ng/mL (0.000-0.034)
[2023-07-09 20:30] LABS: Influenza A QL RT-PCR Negative (Negative); Influenza B QL RT-PCR Negative (Negative); SARS-CoV-2 RNA PCR Positive (Negative)
[2023-07-09 21:12] LABS: Procalcitonin 0.1 ng/mL
[2023-07-09 21:24] VITALS: BP 124/82; PULSE 70; RESP 15; O2SAT 98
[2023-07-09 22:29] VITALS: BP 112/68; PULSE 76; RESP 18; O2SAT 98
== END 2023-07-09 22:30 | disposition home or self-care (01) ==
PROVIDERS: Emergency Provider Emergency Medicine; PCP Family Medicine
DX: U07.1 COVID-19 (principal); J18.9 Pneumonia, unspecified organism; I48.0 Paroxysmal atrial fibrillation; E78.5 Hyperlipidemia, unspecified; G47.33 Obstructive sleep apnea (adult) (pediatric); Z85.51 Personal history of malignant neoplasm of bladder; Z86.73 Personal history of transient ischemic attack (TIA), and cerebral infarction without residual deficits; Z90.79 Acquired absence of other genital organ(s); Z79.01 Long term (current) use of anticoagulants; I49.1 Atrial premature depolarization
CPT/HCPCS: 36415; 80053; 81001; 83605; 83735; 83880; 84145; 84484; 85025; 85610; 85730; 87636; 93005; 99284

== ENCOUNTER 2023-07-10 07:33 | Outpatient (CLI) | payer MEDICARE, SELFPAY ==
[2023-07-10 08:21] LABS: INR 2.5; Prothrombin Time 29.2 Seconds (11.1-14.7)
== END 2023-07-10 07:34 | disposition home or self-care (01) ==
PROVIDERS: PCP Family Medicine; Visit Provider Internal Medicine Cardiovascular Disease
DX: I48.0 Paroxysmal atrial fibrillation (principal); Z79.01 Long term (current) use of anticoagulants
CPT/HCPCS: 36415; 85610

== ENCOUNTER 2023-07-20 07:25 | Outpatient (CLI) | payer MEDICARE, SELFPAY ==
--- NOTE | ~2023-07-20 | XR_ITS ---
XR chest 2V 07/20/2023 07:54 Indication: Covid 19. Procedure: 2 view chest Comparison: 08/02/2019 Findings: There are infiltrates of the right mid and left lower lung, suspicious for pneumonia. Heart size normal. No edema. No pleural effusion or pneumothorax. There are degenerative changes of the ac romioclavicular joints. Moderate thoracic spondylosis. Impression: 1: Bilateral infiltrates, most confluent in the left lower lung, suspicious for pneumonia. Reviewed, dictated and finalized at location B. Impression: 1: Bilateral infiltrates, most confluent in the left lower lung, suspicious for pneumonia.
[2023-07-20 08:32] LABS: Basophils Absolute Auto 0.1 K/mm3 (0.0-0.1); Basophils Percent Auto 0.7 % (0.2-1.2); Eosinophils Absolute Auto 0.1 K/mm3 (0-0.3); Eosinophils Percent Auto 1.6 % (0-4.4); Hematocrit 40.9 % (42.0-52.0); Hemoglobin 12.9 g/dL (14.0-18.0); Immature Granulocyte Absolute 0.04 K/mm3 (0.00-0.031); Immature Granulocyte Percent A 0.5 % (0-0.5); Lymphocytes Absolute Auto 1.81 K/mm3 (0.9-3.2); Lymphocytes Percent Auto 23.5 % (18.3-44.2); Mean Corpuscular HGB Conc 31.5 g/dl (32-36); Mean Corpuscular Hemoglobin 29.3 pg (26-34); Mean Corpuscular Volume 92.7 fl (80-100); Mean Platelet Volume 9.5 fl (7.4-10.4); Monocytes Absolute Auto 0.8 K/mm3 (0.1-0.6); Monocytes Percent Auto 10.5 % (2.6-8.5); Neutrophils Absolute Auto 4.9 K/mm3 (1.3-6.7); Neutrophils Percent Auto 63.2 % (45.5-73.1); Platelet Count Result 464 k/mm3 (150-375); Red Blood Count 4.41 M/mm3 (4.6-6.20); Red Cell Distribution Width 12.9 % (11.5-14.5); White Blood Count 7.7 K/mm3 (4.5-10.0)
== END 2023-07-20 07:26 | disposition home or self-care (01) ==
LOC: ANHLAB 07:26
PROVIDERS: PCP Family Medicine; Visit Provider Physician Assistant Medical
DX: U07.1 COVID-19 (principal); R91.8 Other nonspecific abnormal finding of lung field
CPT/HCPCS: 36415; 71046; 85025

== ENCOUNTER 2023-09-28 06:59 | Outpatient (RCR) | payer MEDICARE, SELFPAY ==
[2023-07-14 07:54] LABS: INR 3.4; Prothrombin Time 36.9 Seconds (11.1-14.7)
[2023-08-04 07:42] LABS: INR 2.6; Prothrombin Time 29.3 Seconds (11.1-14.7)
[2023-08-31 08:08] LABS: INR 2.8; Prothrombin Time 31.4 Seconds (11.1-14.7)
[2023-09-28 07:50] LABS: Prothrombin Time 23.7 Seconds (11.1-14.7)
== END 2023-10-12 23:59 | disposition home or self-care (01) ==
LOC: ANHLAB 06:59
PROVIDERS: PCP Family Medicine; Visit Provider Internal Medicine Cardiovascular Disease
DX: Z51.81 Encounter for therapeutic drug level monitoring (principal); I48.0 Paroxysmal atrial fibrillation; Z79.01 Long term (current) use of anticoagulants
CPT/HCPCS: 36415; 85610

== ENCOUNTER 2023-10-08 15:35 | Outpatient (CLI) | payer MEDICARE, SELFPAY ==
--- NOTE | ~2023-10-08 | XR_ITS ---
EXAMINATION: XR chest 2V 10/08/2023 15:58 INDICATION: Follow-up pneumonia. PROCEDURE: 2 view chest COMPARISON: Comparison to multiple prior studies sequentially, with oldest reviewed study dated 02/25. FINDINGS: The lungs are clear. The cardiomediastinal silhouette is within normal limits. There are no pleural effusions. There is no pneumothorax suspected. IMPRESSION: 1: NO ACUTE CARDIOPULMONARY DISEASE. Reviewed, dictated and finalized at location L. L STRUCTURAL DESIGNER
== END 2023-10-08 15:36 | disposition home or self-care (01) ==
PROVIDERS: PCP Family Medicine; Visit Provider Physician Assistant
DX: J18.9 Pneumonia, unspecified organism (principal)
CPT/HCPCS: 71046

== ENCOUNTER 2023-12-31 12:53 | Outpatient (RCR) | payer MEDICARE, SELFPAY ==
[2023-10-27 08:20] LABS: INR 2.1
[2023-11-27 16:03] LABS: INR 2.4; Prothrombin Time 28.1 Seconds (11.1-14.7)
[2023-12-03 09:11] LABS: INR 2.2; Prothrombin Time 25.9 Seconds (11.1-14.7)
[2023-12-31 13:25] LABS: Prothrombin Time 23.9 Seconds (11.1-14.7)
== END 2024-01-25 23:59 | disposition home or self-care (01) ==
LOC: ANHLAB 12:53
PROVIDERS: PCP Family Medicine; Visit Provider Internal Medicine Cardiovascular Disease
DX: Z51.81 Encounter for therapeutic drug level monitoring (principal); I48.0 Paroxysmal atrial fibrillation; Z79.01 Long term (current) use of anticoagulants
CPT/HCPCS: 36415; 85610

== ENCOUNTER 2024-01-12 12:53 | Outpatient (CLI) | payer MEDICARE, SELFPAY ==
[2024-01-12 14:43] LABS: Folic Acid > 20.0 ng/mL (2.76->20)
== END 2024-01-12 12:54 | disposition home or self-care (01) ==
LOC: ANHLAB 12:55
PROVIDERS: PCP Family Medicine; Visit Provider Student in an Organized Health Care Education/Training Program
DX: I48.0 Paroxysmal atrial fibrillation (principal); R41.89 Other symptoms and signs involving cognitive functions and awareness; R42 Dizziness and giddiness
CPT/HCPCS: 36415; 82607; 82746; 84443

== ENCOUNTER 2024-02-02 09:21 | Outpatient (CLI) | payer MEDICARE, SELFPAY ==
--- NOTE | ~2024-02-02 | CT_ITS ---
EXAMINATION: CTA brain carotid DATE: 02/02/2024 10:07 INDICATION: Dizziness and giddiness. Lightheadedness. TECHNIQUE: Computed tomographic angiography (CTA) of the head was performed without and with 100 mL O mnipaque-350 intravenous contrast. CTA of the neck was performed with intravenous contrast. Automated exposure control and iterative reconstruction technique were employed. The dose-length product was 1 639.06 mGy-cm. Maximum intensity projection and volume rendered 3D-reconstructions were created by jh chacon technologist on a separate workstation. COMPARISON: Head CT 02/25/2018, brain MRI 06/17/2023 FINDINGS: HEAD CTA: There are old infarcts in the cerebellum bilaterally. There is no intracranial hemorrhage, acute infarction, or abnormal intracranial mass lesion. The ventricles are normal in size. There are likely changes of ocular lens replacement surgeries. There is mild mucosal thickening in the paranasa l sinuses. The mastoid air cells are normal. Vertebral arteries are codominant. There is no significa nt stenosis of basilar artery or the posterior cerebral arteries. There is no significant stenosis of intracranial internal carotid arteries or anterior or middle cerebral arteries. Anterior communicati ng artery is normal. The posterior communicating arteries are normal. There is no aneurysm. NECK CTA: There are no pathologically enlarged lymph nodes. There is no significant stenosis of the v ertebral arteries. There is plaque in the proximal internal carotid arteries. There is 0% stenosis of the proximal right internal carotid artery relative to normal distal artery lumen diameter (NASCET c riteria). There is 0% stenosis of the proximal left internal carotid artery relative to normal distal artery lumen diameter. There is moderate thoracic spondylosis. IMPRESSION: 1. Old infarcts in the cerebellum. 2. No aneurysm or significant intracranial arterial stenosis. 3. 0% stenosis of the proximal internal carotid arteries relative to normal distal artery lumen diame ters (NASCET criteria). Reviewed, dictated and finalized at location E. IMPRESSION: 1. Old infarcts in the cerebellum. 2. No aneurysm or significant intracranial arterial stenosis. 3. 0% stenosis of the proximal internal carotid arteries relative to normal dis jenise artery lumen diameters (NASCET criteria).
[2024-02-02 09:52] LABS: Estimated Glomerular Filt Rate 58
== END 2024-02-02 09:22 | disposition home or self-care (01) ==
PROVIDERS: PCP Family Medicine; Visit Provider Student in an Organized Health Care Education/Training Program
DX: R42 Dizziness and giddiness (principal)
CPT/HCPCS: 70496; 70498; Q9967

== ENCOUNTER 2024-04-21 09:47 | Outpatient (RCR) | payer MEDICARE, SELFPAY ==
[2024-01-27 17:30] LABS: INR 2.2; Prothrombin Time 26.4 Seconds (11.1-14.7)
[2024-02-25 09:37] LABS: Prothrombin Time 24.1 Seconds (11.1-14.7)
[2024-03-24 10:42] LABS: INR 2.4; Prothrombin Time 27.6 Seconds (11.1-14.7)
[2024-04-21 10:43] LABS: INR 2.2
== END 2024-04-26 23:59 | disposition home or self-care (01) ==
LOC: ANHLAB 09:47
PROVIDERS: PCP Family Medicine; Visit Provider Internal Medicine Cardiovascular Disease
DX: Z51.81 Encounter for therapeutic drug level monitoring (principal); I48.0 Paroxysmal atrial fibrillation; Z79.01 Long term (current) use of anticoagulants
CPT/HCPCS: 36415; 85610

== ENCOUNTER 2024-05-24 12:54 | Outpatient (RCR) | payer MEDICARE, SELFPAY ==
[2024-05-24 13:27] LABS: Prothrombin Time 23.4 Seconds (11.1-14.7)
== END 2024-06-21 08:28 | disposition home or self-care (01) ==
LOC: ANHLAB 12:54
PROVIDERS: PCP Family Medicine; Visit Provider Internal Medicine Cardiovascular Disease
DX: Z51.81 Encounter for therapeutic drug level monitoring (principal); I48.0 Paroxysmal atrial fibrillation; Z79.01 Long term (current) use of anticoagulants
CPT/HCPCS: 36415; 85610

== ENCOUNTER 2024-08-17 08:34 | Outpatient (RCR) | payer MEDICARE, SELFPAY ==
[2024-06-21 09:44] LABS: INR 1.9; Prothrombin Time 22.2 Seconds (11.1-14.7)
[2024-07-19 08:59] LABS: INR 2.2; Prothrombin Time 24.9 Seconds (11.1-14.7)
[2024-08-17 09:20] LABS: INR 2.2; Prothrombin Time 24.7 Seconds (11.1-14.7)
== END 2024-09-19 23:59 | disposition home or self-care (01) ==
LOC: ANHLAB 08:34
PROVIDERS: PCP Family Medicine; Visit Provider Internal Medicine Cardiovascular Disease
DX: Z51.81 Encounter for therapeutic drug level monitoring (principal); Z79.01 Long term (current) use of anticoagulants
CPT/HCPCS: 36415; 85610

== ENCOUNTER 2024-09-20 07:51 | Outpatient (CLI) | payer MEDICARE, SELFPAY ==
[2024-09-20 08:34] LABS: INR 2.4; Prothrombin Time 26.6 Seconds (11.1-14.7)
== END 2024-09-20 07:52 | disposition home or self-care (01) ==
PROVIDERS: PCP Family Medicine; Visit Provider Internal Medicine Cardiovascular Disease
DX: Z79.01 Long term (current) use of anticoagulants (principal)
CPT/HCPCS: 36415; 85610

== ENCOUNTER 2024-11-16 10:55 | Outpatient (CLI) | payer MEDICARE, SELFPAY ==
[2024-11-16 11:50] LABS: Basophils Absolute Auto 0.1 K/mm3 (0.0-0.1); Basophils Percent Auto 0.6 % (0.2-1.2); Eosinophils Absolute Auto 0.1 K/mm3 (0-0.3); Eosinophils Percent Auto 0.5 % (0-4.4); Hematocrit 47.4 % (42.0-52.0); Hemoglobin 15.1 g/dL (14.0-18.0); Immature Granulocyte Absolute 0.02 K/mm3 (0.00-0.031); Immature Granulocyte Percent A 0.2 % (0-0.5); Lymphocytes Absolute Auto 1.77 K/mm3 (0.9-3.2); Mean Corpuscular HGB Conc 31.9 g/dl (32-36); Mean Corpuscular Hemoglobin 29.8 pg (26-34); Mean Corpuscular Volume 93.5 fl (80-100); Mean Platelet Volume 9.6 fl (7.4-10.4); Monocytes Absolute Auto 0.6 K/mm3 (0.1-0.6); Monocytes Percent Auto 5.8 % (2.6-8.5); Neutrophils Absolute Auto 7.4 K/mm3 (1.3-6.7); Neutrophils Percent Auto 74.9 % (45.5-73.1); Platelet Count Result 307 k/mm3 (150-375); Red Blood Count 5.07 M/mm3 (4.6-6.20); Red Cell Distribution Width 13.6 % (11.5-14.5); White Blood Count 9.9 K/mm3 (4.5-10.0)
[2024-11-16 12:01] LABS: Alanine Aminotransferase 39 U/L (6-50); Albumin Level 4.5 g/dL (3.5-5.1); Alkaline Phosphatase 69 U/L (38-126); Anion Gap 6 mmol/L (4-12); Aspartate Amino Transferase 36 U/L (17-59); Bilirubin,Total 1.2 mg/dL (0.2-1.3); Blood Urea Nitrogen 23 mg/dL (9-20); Calcium 9.4 mg/dL (8.4-10.2); Carbon Dioxide 30 mmol/L (22-30); Chloride 104 mmol/L (98-107); Cholesterol 151 mg/dL (0-200); Estimated Glomerular Filt Rate > 60; Glucose 99 mg/dL (65-110); HDL Direct 53 mg/dL; Potassium 4.1 mmol/L (3.4-5.0); Sodium 140 mmol/L (137-145); Triglycerides 103 mg/dL (<150)
[2024-11-16 12:12] LABS: LDL Cholesterol Direct 61 mg/dL
== END 2024-11-16 10:56 | disposition home or self-care (01) ==
PROVIDERS: PCP Family Medicine; Visit Provider Family Medicine
DX: E78.5 Hyperlipidemia, unspecified (principal); I48.0 Paroxysmal atrial fibrillation; M54.16 Radiculopathy, lumbar region
CPT/HCPCS: 36415; 80053; 80061; 85025

== ENCOUNTER 2024-12-08 13:26 | Outpatient (CLI) | payer MEDICARE, SELFPAY ==
--- NOTE | ~2024-12-08 | XR_ITS ---
EXAMINATION: XR hip LT min 2V DATE: 12/08/2024 13:48 INDICATION: Left hip pain. TECHNIQUE: 2 views of left hip were obtained. COMPARISON: Pelvis radiograph 05/15/21 FINDINGS: There is lumbar levocurvature and severe spondylosis. No fracture. There is moderate left h ip osteoarthritis. Surgical clips overlie the pelvis. IMPRESSION: 1. Moderate left hip osteoarthritis. Reviewed, dictated and finalized at location A. ICAL LEADER
--- NOTE | ~2024-12-08 | CT_ITS ---
CLINICAL INDICATION: Dorsalgia COMPARISON: 07/08/2023. TECHNIQUE: Multiple contiguous axial images of the abdomen and pelvis were performed without the admi nistration of intravenous contrast The dose-length product (DLP) was 482.63 mGy-cm. Automated exposure control and iterative reconstruction technique were employed. FINDINGS/OBSERVATIONS: Visualized lower thorax: The bilateral lung bases are clear. The heart is of normal size, without pericardial effusion. Small hiatal hernia is present. Liver: The liver demonstrates homogeneous attenuation and is not enlarged measuring 16 cm in longitudinal di mension. Gallbladder and biliary system: The gallbladder is only minimally distended, and otherwise unremarkable. Pancreas: Limited evaluation of the pancreas secondary to the lack of intravenous contrast. Spleen: The spleen demonstrates homogeneous attenuation and is not enlarged measuring 4 cm in longitudinal di mension. Kidneys: 6 mm nonobstructing calculus within the upper pole of the left kidney. 2 mm nonobstructing calculus within the lower pole of the left kidney. Multiple well-circumscribed rounded foci of fluid attenuation are identified within the bilateral kid neys. Most are too small to characterize. The largest is within the upper pole of the left kidney john suring 4.6 x 3.9 x 5.1 cm (anterior to posterior x medial to lateral x cranial to caudal dimension). The bilateral kidneys are unremarkable, without hydronephrosis or renal calculi. Adrenal glands: Unremarkable. Gastrointestinal tract: Sigmoid diverticulosis without surrounding inflammatory change. Fecal stasis within the colon. Appendix: The air-filled appendix is of normal caliber (coronal series, images 49-61). Vasculature: Unremarkable. Lymph nodes: No pathologically enlarged or morphologically suspicious lymph nodes within the retroperitoneum or at the root of the mesentery. Pelvic structures: The bladder is distended, and otherwise unremarkable. The prostate gland is surgically absent. Body wall and musculoskeletal: Small fat-containing umbilical hernia. Significant degenerative disease within the lumbar spine with osteophyte formation, disc space narrow ing, endplate changes and vacuum phenomena. Compression of the superior endplate of the L1 vertebral body is present, unchanged from 07/08/2023. IMPRESSION: Nonobstructing renal calculi. Multiple cysts within the bilateral kidneys, the largest within the upper medial pole of the left kid negro, possibly the source of patient's discomfort. Significant degenerative disease within the lumbosacral spine, without acute fracture. Reviewed, dictated and finalized at location A. TER OPERATOR IMPRESSION: Nonobstructing renal calculi. Multiple cysts within the bilateral kidneys, the largest within the upper media l pole of the left kidney, possibly the source of patient's discomfort. Significant degenerative disease within the lumbosacral spine, without acute fr acture.
--- OUTSIDE RECORDS SUMMARY | 2024-12-08 14:09 | XMS_ITS | Continuity of Care Document ---
Author Organization [facility] Address [address] [place] [address] Phone Care Team Providers Care Typing Checker Name Role Phone Neeta Kenny Unavailable Unavailable Procedures Procedure Date Office/outpatient Visit, Est Progressive Lens Per Lens Frames Deluxe Anti-reflective Coating Tax - Medical Prism Lens/es Office/outpatient Visit, Est Refraction Eye Exam & Treatment Eye Exam & Treatment Visual Functional Status Assessed Progressive Lens Per Lens Vision Svcs Frames Purchases Prism Tax - Medical Advance Directives Directive Yes / No Effective Date File Name No Information Encounters Encounter Description Practice Location Reason(s) For Visit Diagnoses Date Provider Providers Copied on Encounter Office/outpa tient Visit, Est [facility], [address] [place] [address] [address], [place], [place], [id number], [place] tel:[phone] [facility] No Information Apr- 9-201 0 Zoya Santacruz. [address], [place], [address], [place]. tel:[phone] [facility], [address], [place], [place], [address], [place] tel:[phone] [facility] No Information Apr-2 6-200 9 [facility]. [address], [address], [place], [place], [address], [place]. tel:[phone] Referring Provider: Neeta Ponce, [address], [place], [address]. tel:[phone] [facility] Eye [facility] [place], [address], [place], [place], [id number], [place] tel:[phone] [facility] No Information Apr-2 3-200 9 Zoya Santacruz. [address], [place], [address], [place]. tel:[phone] [facility] Eye [facility] [place], [address], [place], [place], [id number], [place] tel:[phone] [facility] No Information Oct-0 1-200 8 Krishnasamy Todd. [address] [facility] [address], [place], [place], [facility], [place]. tel:[phone] [facility] Eye [facility] [place], [address], [place], [place], [id number], [place] tel:[phone] [facility] No Information Oct-0 1-200 7 Luiza Lomax. [address] [facility] [address], [place], [place], [address], [place]. tel:[phone] [facility] Eye [facility] [place], [address], [place], [place], [address], [place] tel:[phone] [facility] No Information May-0 3-200 7 [facility]. [address], [address], [place], [place], [address], [place]. tel:[phone] Referring Provider: Dami Epperson, [address], [place], [address]. tel:[phone] 2020Consultin g Provider: Macie Banks, [address] [facility], [place], [address]. tel:[phone] Family History Family Member Type Diagnosis Age At Onset No Information Payers Payer name Insurance type Covered green party ID Authoriza tion(s) [place] [id number] Social History Type Description Quantity Date Captured Comments Sex Male Smoking Status No Information Chief Complaint And Reason For Visit No Information Reason For Referral Reason For Referral No Information History Of Present Illness Encounter Date Complaint History Of Prese nt Illness No Information Functional Status Date Functional Assessmen t No Information Instructions Date Instruction Additional Infor mation No Information Assessments Type Assessment Date No Information Patient Care Teams Name Effective Dates (start - stop) Status Members No Information
--- OUTSIDE RECORDS SUMMARY | 2024-12-08 14:10 | XMS_ITS | Data Portability ---
Author Organization [place] - [facility], Main Office Address [address] [place] [address] Care Team Providers Care Industrial Engineering Intern Name Role Phone MEME HOLLIS Primary Care Provider MEME HOLLIS Referring Provider [phone] Assessment Encounter Date Assessment Date Assessment LastModified by Organization Details LastModified Time 01/16/2023 01/16/2023 HPI: Patient returns. It has been 3 months since his last cortisone injection both of his knees. He gets excellent relief. Previous x-rays show severe patellofemoral osteoarthritis in both knees. He wished to continue with having injections. Physical exam 82-year-old male alert. He walks with a cane. He has mild effusions in both knees. Range motion is from 3-135 degrees bilaterally. There is significant crepitus of the patellofemoral joint with range of motion bilaterally. Moderate pain with patellofemoral grind. No medial or lateral joint line tenderness in either knee. No increased swelling in either lower extremity. ChloraPrep was used on skin 20 mg Kenalog and 3 cc of 0.5% ropivacaine was injected into both knees. Risk infection discussed. Impression: 82-year-old male who has severe patellofemoral osteoarthritis in both knees. He continues to be good in from the injections. We will see him back in 3 months repeat injection. [email or web address] Not available 01/16/2023 10:38:26 04/17/2023 04/17/2023 HPI: Patient returns. He is here for cortisone injection both his knees. Last shots were 3 months ago. Does get good relief. He has severe patellofemoral osteoarthritis in the knees. He wishes to continue with injections. Physical exam: 82-year-old male very alert pleasant. Walks with a cane for balance. He has a zntc-cy-vbrjkwdd effusion both knees. No redness warmth. Mild chronic edema in both lower extremities. Does wear compression socks. Moderate crepitus of the patellofemoral joints with range of motion. Range of motion is from 0-130 degrees bilaterally. After ChloraPrep a skin 20 mg Kenalog and 3 cc of 0.5% ropivacaine was injected into both knees. Risk infection discussed. Impression: 82-year-old male has severe patellofemoral osteoarthritis in both knees. He continues to get good relief from the injections. We will see him back in 3 months. Not available 04/17/2023 10:53:23 07/29/2023 07/29/2023 HPI: Patient returns. He is here for cortisone injection both of his knees. Last shot was III months ago. He continues get some benefit from injections. Previous x-rays show advanced patellofemoral osteoarthritis in both knees. Wish to have additional injections today. Physical exam: 82-year-old male alert pleasant. He walks with a cane. He has mild effusion both knees. Range motion is from 5-135 degrees bilaterally. Trace edema in both lower extremities. No redness or warmth noted. ChloraPrep was used on skin 20 mg Kenalog and 3 cc of 0.5% ropivacaine was injected in both knees. Risk infection discussed. Impression: 82-year-old male who has severe patellofemoral osteoarthritis both knees. We will see him in 3 months for repeat injections Not available 07/29/2023 09:38:17 10/28/2023 10/28/2023 HPI: Patient returns. He is here for cortisone injections into both of his knees. He has advanced patellofemoral osteoarthritis in both knees. Last shots were 3 months ago. Shots do continue to give him benefit. It is not wish to discuss surgery. Physical exam: 82-year-old male alert pleasant. He walks with a cane. He has a mild effusion in the right knee moderate effusion in the left. Range motion is from 3-135 degrees bilaterally. Moderate pain with patellofemoral grind in both knees. After ChloraPrep was used on the skin 20 mg Kenalog and 3 cc of 0.5% ropivacaine was injected in both knees. Risk of infection discussed. Impression: 82-year-old male who has advanced patellofemoral osteoarthritis in both knees. Shots continue to help him. We will see him in 3 months. Not available 10/28/2023 09:20:46 01/27/2024 01/27/2024 HPI: Patient returns. He is here for cortisone injections into both of his knees. Last shot was 3 months ago. He has severe patellofemoral osteoarthritis in both knees. He wishes to continue with injections. Physical exam: 83-year-old male alert pleasant. He walks with a cane. He has mild to moderate effusions in both knees. He has approximately 10 degree flexion contracture in both knees and flexes to 125?? bilaterally. Trace edema in both lower extremities. After alcohol prep 20 mg Kenalog and 3 cc of 0.5% Marcaine was injected into both knees. Impression: Patient has severe patellofemoral osteoarthritis in both knees. Shots continue to give him good relief. See him in 3 months. Not available 01/27/2024 11:06:19 Plan of Treatment Reminders Order Date Submit Date Provider Last Modified By Organization Details Last Modified Time Details Appointments None recorded. Lab None recorded. Referral None recorded. Procedures injection/a spiration joint/bursa (PROC) - in office procedure, administere d by provider 2022 023 [email or web address] Not available 3 10:09:56 injection/a spiration joint/bursa (PROC) - in office procedure, administere d by provider 2022 023 In-Office Order, Internal Use Only DO Not Attach Compendium DO Not Attach Compendium, Do Not Delete/merge, [id number] 3 09:55:45 injection/a spiration joint/bursa (PROC) - in office procedure, administere d by provider 2022 023 [email or web address] In-Office Order, Internal Use Only DO Not Attach Compendium DO Not Attach Compendium, Do Not Delete/merge, [id number] 3 09:00:49 injection/a spiration joint/bursa (PROC) - in office procedure, administere d by provider 2022 023 [email or web address] In-Office Order, Internal Use Only DO Not Attach Compendium DO Not Attach Compendium, Do Not Delete/merge, [id number] 3 08:57:03 injection/a spiration joint/bursa (PROC) - in office procedure, administere d by provider 2023 024 [email or web address] In-Office Order, Internal Use Only DO Not Attach Compendium DO Not Attach Compendium, Do Not Delete/merge, [id number] 4 09:58:20 Surgeries None recorded. Imaging XR, knee 2022 023 [email or web address] [facility], [facility] [facility] [address], [place], [address], 3 12:30:32 Medication Orders Kenalog 10 mg/mL suspension for injection 2022 023 [email or web address][id number], [address] [place] [address], [id number], 3 08:51:46 ropivacaine (PF) 5 mg/mL (0.5 %) injection solution 2022 023 [email or web address] [facility] #55494, [address] [place] [address], [id number], 3 08:51:56 Kenalog 10 mg/mL suspension for injection 2022 023 [email or web address] [facility] #99786, [address] [place] [address], [id number], 3 08:51:46 ropivacaine (PF) 5 mg/mL (0.5 %) injection solution 2022 023 [email or web address] [facility] #64831, [address] [place] [address], [id number], 3 08:51:56 Kenalog 10 mg/mL suspension for injection 2022 023 [email or web address] [facility] #87989, [address] [place] [address], [id number], 3 08:51:46 ropivacaine (PF) 5 mg/mL (0.5 %) injection solution 2022 023 [email or web address] [facility] #73175, [address] [place] [address], [id number], 3 08:51:56 Kenalog 10 mg/mL suspension for injection 2022 023 [facility] #07200, [address] [place] [address], [id number], 3 13:06:36 ropivacaine (PF) 5 mg/mL (0.5 %) injection solution 2022 023 [facility] #42122, [address] [place] [address], [id number], 3 13:06:36 Kenalog 10 mg/mL suspension for injection [address] [facility] #06857, [address] [place] [address], [id number], 4 11:13:45 Marcaine (PF) 0.5 % (5 mg/mL) injection solution [address] [facility] #05194, [address] [place] [address], [id number], 4 11:13:45 Patient TargetsNo targets recorded. Patient InstructionsNo instructions recorded. Reason for Referral None Reported. Results Created Date Observation Date Name Description Value Unit Range Abnormal Flag Note LastModifiedBy Organization Detail LastModifiedTime 04/17/20 23 XR, knee No observ ation record ed. [facility] [address], [place], [address], 04/17/2023 10:52:17 Result Notes None recorded. Problems Name Problem SNOMED Code Status Onset Date Resolution Date Notes Provider Name and Address Organization Details Recorded Time Bilateral osteoarthr itis of knees 3696102775088 07 Active 2021 Not Available [facility] 3 02:52:36 Partial thickness rotator cuff tear 612954567 Active Not Available [facility] 3 02:52:36 Shoulder joint pain 493994236 Active Not Available [facility] 3 02:52:36 Osteoarthr itis 438106886 Active 2021 Not Available [facility] 3 02:52:36 Problem Notes None recorded. Procedures Surgical History None recorded. Imaging Results Imaging Date Name Status LastModified by Organiz ation Details LastModified Time 04/17/2023 XR, knee completed [facility] [address], [place], [address], 04/17/2023 10:52:17 Procedure Notes None recorded. Medical Equipment None Reported. Allergies No known drug allergies Medications Name Sig Start Date Stop Date Status Note LastModified by Organization Details LastModified Time cefprozil 500 mg tablet TAKE 1 TABLET BY MOUTH EVERY 12 HOURS FOR 7 DAYS 10/28 completed Not Available Not Available Not Available doxycycline hyclate 100 mg capsule TAKE 1 CAPSULE BY MOUTH TWICE DAILY FOR 7 DAYS 10/28 completed Not Available Not Available Not Available atorvastati n 20 mg tablet TAKE 1 TABLET BY MOUTH EVERY DAY active Not Available Not Available No t Available valacyclovi r 1 gram tablet 10/18 completed Not Available Not Available Not Available meclizine 12.5 mg tablet 10/18 completed Not Available Not Available Not Available sulfamethox azole 800 mg-trimetho prim 160 mg tablet 07/20 completed Not Available Not Available Not Available tramadol 50 mg tablet TAKE 1 TABLET BY MOUTH EVERY 6 HOURS NEEDED FOR PAIN 07/19 completed Not Available Not Available Not Available warfarin 4 mg tablet TAKE 1 TABLET BY MOUTH ONCE DAILY active Not Available Not Available No t Available Vitamin C 1,000 mg tablet Take by oral route. 2020 active Not Available Not Available Not Avai lable Kenalog 10 mg/mL suspension for injection in office 2023 active NDC: 0003- 0494- 20 Not Available Not Available Not Available meclizine 25 mg tablet TAKE 1 TABLET BY MOUTH THREE TIMES DAILY NEEDED FOR DIZZINESS active Not Available Not Available No t Available potassium citrate ER 10 mEq (1,080 mg) tablet,exte nded release 07/20 completed Not Available Not Available Not Available ranitidine 150 mg tablet 07/20 completed Not Available Not Available Not Available Xylocaine 20 mg/mL (2 %) injection solution In office injection administe red by the provider 04/18 completed Not Available Not Available Not Available zinc 50 mg tablet Take by oral route. 2020 active Not Available Not Available Not Avai lable warfarin 1 mg tablet TAKE 1 TABLET BY MOUTH ONCE DAILY active Not Available Not Available No t Available ondansetron 4 mg disintegrat ing tablet DISSOLVE 1 TABLET ON THE TONGUE EVERY 8 HOURS NEEDED FOR NAUSEA OR VOMITING 10/28 completed Not Available Not Available Not Available cefdinir 300 mg capsule 10/19 completed Not Available Not Available Not Available amoxicillin 875 mg-potassiu m clavulanate 125 mg tablet TAKE 1 TABLET BY MOUTH EVERY 12 HOURS 07/29 completed Not Available Not Available Not Available Marcaine (PF) 0.5 % (5 mg/mL) injection solution in office 2023 active Not Available Not Available Not Avai lable lidocaine (PF) 10 mg/mL (1 %) injection solution In office injection administe red by the provider 04/18 completed ND: 0409- 4276- 17 Not Available Not Available Not Available lidocaine (PF) 5 mg/mL (0.5 %) injection solution In office injection administe red by the provider 01/16 completed Not Available Not Available Not Available hydrochloro thiazide 12.5 mg tablet TAKE 1 TABLET BY MOUTH ONCE DAILY 04/18 completed Not Available Not Available Not Available Osteo Bi-Flex 07/18 completed Not Available Not Available Not Available ropivacaine (PF) 5 mg/mL (0.5 %) injection solution in office 2022 active Not Available Not Available Not Avai lable Fluad 65yr up(PF)45 mcg(15 mcgx3)/0.5 mL intramuscul ar syringe ADMINISTE R 0.5ML IN THE MUSCLE DIRECTED 10/19 completed Not Available Not Available Not Available Fluzone High-Dose Quad (PF) 240 mcg/0.7 mL IM syringe ADM 0.7ML IM UTD 10/19 completed Not Available Not Available Not Available Vitals Date Recorded Body height Provider Name an d Address Organization Details Last Updated DateTime 01/16/2023 175.26 cm Mira Jarquin [facility] [employer] [facility] 01/16/2023 10:08:19 Date Recorded Body height Provider Name an d Address Organization Details Last Updated DateTime 04/17/2023 175.26 cm Mira Britton [facility] [employer] [facility] 04/17/2023 09:53:51 Date Recorded Body height Body mass index (BMI) Body weight Provider Name and Address Organization Details Last Updated DateTime 07/29/2023 175.26 cm 26.6 kg/m2 35342.63 g Mira Jarquin [facility] [employer] [facility] 07/29/2023 09:22:18 Date Recorded Body height Provider Name an d Address Organization Details Last Updated DateTime 10/28/2023 175.26 cm Mira Britton [facility] [employer] [facility] [employer] [facility] 10/28/2023 08:51:30 Date Recorded Body height Provider Name an d Address Organization Details Last Updated DateTime 01/27/2024 175.26 cm Mira Jarquin [facility] [employer] 01/27/2024 09:56:26 Social History Question Answer Notes LastModified by Organizat ion Details LastModified Time What Was The Date Of Your Most Recent Tobacco Screening? 01/18/2021 [id number] Information not available 01/07/2023 Sex: Unknown Functional Status None recorded. Mental Status None recorded. Family History Relationship Description Onset Age of this Age Resolved Age Notes LastModified by Organization Details LastModified Time Unspecified Relation Family history of stroke [id number] Not available 01/07/2023 02:44:13 Unspecified Relation Family history of malignant neoplasm [id number] Not available 01/07/2023 02:44:13 Notes:liver cirrhosis: fathe r Medical History Condition Response BLINDNESS N KIDNEY STONES N MRSA N CARPAL TUNNEL SYNDROME N LUNG DISEASE/DISORDER N HISTORY OF DRUG ABUSE N RADIATION / CHEMOTHERAPY N COPD N SPORTS INJURY N ANKLE PAIN N BLOOD DISEASES N SCHIZOPHRENIA N SHINGLES N SHOULDER PAIN N BOWEL PROBLEMS N DEPRESSION (INCLUDING POST ) N STROKE/TIA Y ULCERS N KNEE PAIN N BENIGN PROSTATIC HYPERPLASIA N OBESITY N GERD/NAUSEA N ANEURYSM N URINARY/BLADDER/KIDNEY PROBLEMS N CORONARY ARTERY DISEASE (CAD) N ADDICTION CONCERNS N USE OF BLOOD THINNERS N SKIN PROBLEMS N EMPHYSEMA N MUSCLE,JOINT OR BONE PROBLEMS N DVT N STOMACH ULCERS N BLOOD CLOTS N USE OF NSAIDS N CONCUSSION OR SPINAL TRAUMA N NEUROPATHY N AIDS/HIV N FRACTURES N HYPERTENSION N ELBOW PAIN N TOURETTE'S N Metal allergy N ANXIETY DISORDER N BLOOD TRANSFUSION N ANEMIA/BLOOD DISORDER N BIPOLAR DISORDER N BRONCHITIS N OSTEOARTHRITIS N TUBERCULOSIS N FOOT PROBLEM N HEART VALVE DISORDERS N ALLERGIES/HAYFEVER N SOFT TISSUE INJURY N INFECTIOUS DISEASE N HEART ARRHYTHMIA N INSOMNIA N HIGH CHOLESTEROL / HYPERLIPIDEMIA N RHEUMATOID ARTHRITIS N EDEMA N CHRONIC PAIN SYNDROME N CAROTID BLOCKAGE N BACK / NECK PROBLEMS N HAVE YOU BEEN HOSPITALIZED OR SEEN IN [facility] IN THE PAST YEAR ? N BURSITIS N HERNIATED DISC N DIALYSIS N FIBROMYALGIA N OSTEOPOROSIS N ARTHRITIS Y NO SIGNIFICANT PAST MEDICAL HISTORY N PERIPHERAL NEUROPATHY N DIABETES, TYPE N HEARTBURN / REFLUX N HEPATITIS / LIVER DISEASE N GOUT N ALZHEIMER'S DISEASE N SLEEP DISORDER N HERPES N HEADACHES/MIGRAINES N SEIZURES/EPILEPSY N VASCULAR DISEASE N Blood Disorder N HIP PAIN N DIZZINESS N HEAD TRAUMA OR INJURY N HEART DISEASE/HEART PROBLEMS N MULTIPLE SCLEROSIS N CANCER: SPECIFY Y CARDIAC ARRHYTHMIA N ANESTHESIA COMPLICATIONS N ATRIAL FIBRILLATION N AUTOIMMUNE DISEASE N Past Encounters Encounter ID Performer Location Encounter Start Date Encounter Closed Date Diagnosis/Indication Diagnosis SNOMED-CT Code Diagnosis ICD10 Code Diagnosis Note [id number] [facility] [address] [place] [address] 01/18/2021 00:00:00 01/18/2021 11:02:40 [id number] [facility] [address] [place] [address] 04/19/2021 00:00:00 04/19/2021 10:29:52 [id number] [facility] [address] [place] [address] 07/19/2021 00:00:00 07/19/2021 11:22:55 [id number] [facility] [address] [place] [address] 10/18/2021 00:00:00 10/18/2021 12:26:10 [id number] [facility] [address] [place] [address] 01/17/2022 00:00:00 01/17/2022 11:41:20 [id number] [facility] [address] [place] [address] 04/18/2022 00:00:00 04/18/2022 10:21:21 [id number] [facility] [address] [place] [address] 07/18/2022 00:00:00 07/18/2022 10:43:44 [id number] [facility] [address] [place] [address] 10/17/2022 00:00:00 10/26/2022 19:34:58 [id number] KASIE Hdz [facility] [address] [place] [address] 01/16/2023 10:01:43 01/16/2023 10:54:48 Bilateral osteoarthritis of knees [id number] 42830 M17.0 [id number] KASIE Hdz [facility] [address] [place] [address] 04/17/2023 09:51:22 04/17/2023 10:55:32 Bilateral osteoarthritis of knees [id number] 39353 M17.0 [id number] KASIE Hdz [facility] [address] [place] [address] 07/29/2023 08:45:50 07/29/2023 09:42:44 Bilateral osteoarthritis of knees [id number] 09957 M17.0 [id number] KASIE Hdz [facility] [address] [place] [address] 10/28/2023 08:46:30 10/28/2023 10:14:44 Bilateral osteoarthritis of knees 4712962127 04199 M17.0 [id number] KASIE Hdz [facility] [address] [place] [address] 01/27/2024 09:51:28 01/27/2024 11:45:28 Bilateral osteoarthritis of knees [id number] 69500 M17.0 Health Concerns Section Related Observation LastModified by Organization Detai ls LastModified Time None Recorded Concern Status LastModified by Organization Details LastModified Time None Recorded Advance Directives Directive None Recorded Payers Encounter Date Sequence Insurance Name Policy Number Policy Melvin Covered Member ID Melvin Member ID Guarantor Name 01/16/2023 1 [facility] (MEDICARE REPLACEMENT/A DVANTAGE - HMO) [id number] Alfredo Wright [id number] Alfredo Wright 04/17/2023 1 [facility] (MEDICARE REPLACEMENT/A DVANTAGE - HMO) [id number] Alfredo Wright [id number] Alfredo Wright 07/29/2023 1 [facility] (MEDICARE REPLACEMENT/A DVANTAGE - HMO) [id number] Alfredo Wright [id number] Alfredo Wright 10/28/2023 1 [facility] (MEDICARE REPLACEMENT/A DVANTAGE - HMO) [id number] Alfredo Wright [id number] Alfredo Wright 01/27/2024 1 [facility] (MEDICARE REPLACEMENT/A DVANTAGE - HMO) [id number] Alfredo Wright [id number] Alfredo Wright
== END 2024-12-08 13:27 | disposition home or self-care (01) ==
PROVIDERS: PCP Family Medicine; Visit Provider Family Medicine
DX: M16.12 Unilateral primary osteoarthritis, left hip (principal); N20.0 Calculus of kidney; N28.1 Cyst of kidney, acquired; M51.369 Other intervertebral disc degeneration, lumbar region without mention of lumbar back pain or lower extremity pain
CPT/HCPCS: 73502; 74176

== ENCOUNTER 2025-01-11 09:33 | Outpatient (RCR) | payer MEDICARE, SELFPAY ==
[2024-10-18 09:04] LABS: INR 2.7; Prothrombin Time 28.6 Seconds (11.1-14.7)
[2024-11-16 12:14] LABS: INR 2.4; Prothrombin Time 26.3 Seconds (11.1-14.7)
[2024-12-15 10:31] LABS: INR 2.2; Prothrombin Time 24.8 Seconds (11.1-14.7)
--- NOTE | ~2025-01-11 | XR_ITS ---
XR elbow RT min 3V Ordering provider: Fanny Hillman MD History: . M25.521 - Pain in right elbow. FALL X 1 WK AGO . Comparison: No FINDINGS: BONES: No acute fracture or dislocation. JOINT SPACES: Normal. SOFT TISSUES: Unremarkable. No definite joint effusion. IMPRESSION: No acute osseous abnormality of the right elbow. Reviewed, dictated and finalized at location A. ANICAL PROJECT MANAGER
--- NOTE | ~2025-01-11 | XR_ITS ---
3 VIEWS LUMBAR SPINE Ordering provider: Fanny Hillman History: . M54.50 - Low back pain, unspecified. FALL X 1 WK AGO . Comparison: None. FINDINGS: VERTEBRAL BODIES:Compression fracture of L1. Mild compression of T12 is also noted. Degenerative changes of the spine. DISK SPACES: Narrowing of the disc L2-L3 and L5-S1. SOFT TISSUES: Normal. IMPRESSION: Compression fracture of L1 most likely chronic. Multilevel degenerative disc disease. Reviewed, dictated and finalized at location A. LE LASTER
[2025-01-11 10:52] LABS: INR 2.3; Prothrombin Time 25.7 Seconds (11.1-14.7)
== END 2025-01-16 23:59 | disposition home or self-care (01) ==
LOC: ANHLAB 09:33
PROVIDERS: PCP Family Medicine; Visit Provider Internal Medicine Cardiovascular Disease
DX: Z51.81 Encounter for therapeutic drug level monitoring (principal); Z79.01 Long term (current) use of anticoagulants
CPT/HCPCS: 36415; 72110; 73080; 85610

== ENCOUNTER 2025-03-14 10:56 | Emergency (ER) | payer MEDICARE, SELFPAY ==
[2025-03-14 11:08] VITALS: BP 129/68; PULSE 40; RESP 16; TEMP 37.1; O2SAT 100
--- NOTE | 2025-03-14 11:13 | ED_ITS ---
HPI - Wound/Laceration General Chief Complaint: Wound/Laceration Stated Complaint: Cut Left Hand Time Seen by Provider: 03/14/25 11:13 Source: patient, family, RN notes reviewed and old records reviewed Mode of arrival: ambulatory (with cane) Limitations: no limitations History of Present Illness HPI narrative: 84 year old male presents to [facility] accompanied by son with complaints of laceration to the left thumb proximal upper anterior aspect which occurred when he was using a saw to try to cut a bolt off. Patient is on Coumadin daily and son states that patient did have a hard time trying to get blood stopped. Patient has applied gauze and wrapped tightly with tape with bleeding controlled on arrival to clinic. Patient has full mobility of all fingers of left hand with strong left radial pulse. Son reports that patient is on blood thinner due to atrial fibrillation and he has had previous stroke. Last tetanus 2018. Onset (ago): hour(s) (within ast hour prior to arrival) Location: other (left hand thumb ) Extremity Location: Left: hand (across proximal upper thumb region of left hand) Place: home Treatments prior to arrival: bandage (pressure) Related Data Home Medications ?Medication ?Instructions ?Recorded ?Confirmed ?Last Taken ?Type atorvastatin 20 mg tablet 20 mg PO DAILY 09/15/19 01/27/25 Unknown History acetaminophen 325 mg tablet 325 mg PO Q6H PRN 01/10/21 01/27/25 Unknown History (Tylenol) warfarin 4 mg tablet 4 mg PO DAILY 03/28/22 01/27/25 Unknown History ascorbic acid (vitamin C) 1,000 mg 1 g PO DAILY 10/28/24 01/27/25 Unknown History capsule calcium carbonate 260 mg PO DAILY 10/28/24 01/27/25 Unknown History vitamin B complex 1 cap PO DAILY 10/28/24 01/27/25 Unknown History zinc citrate, zinc oxide 50 mg mg PO 10/28/24 01/27/25 Unknown History tablet cholecalciferol (vitamin D3) 10 10 mcg PO DAILY 01/27/25 01/27/25 Unknown History mcg (400 unit) capsule meclizine 25 mg tablet 12.5 mg .Route .COMPLEX 01/27/25 01/27/25 Unknown History Allergies Allergy/AdvReac Type Severity Reaction Status Date / Time hydrocodone AdvReac Mild NAUSEA AND Verified 03/14/25 11:07 VOMITING morphine AdvReac Mild NAUSEA AND Verified 03/14/25 11:07 VOMITING codeine AdvReac Unknown Nausea and Verified 03/14/25 11:07 Vomiting Review of Systems Review of Systems: CONSTITUTIONAL: Denies fever, chills, or sweats. CARDIOVASCULAR: Denies chest pain, palpitations, or edema. RESPIRATORY: Denies cough or dyspnea. SKIN: Reports laceration to the upper proximal region of left thumb/hand MUSCULOSKELETAL: Denies musculoskeletal pain NEUROLOGIC: Denies numbness, or weakness. All systems reviewed & are unremarkable except as noted in HPI and below PMFSH Past Medical History Medical History Prostate CA MCI (mild cognitive impairment) SONG (obstructive sleep apnea) Lumbar compression fracture History of stroke Paroxysmal atrial fibrillation Hyperlipidemia Primary hypertension Bladder cancer Hematuria Surgical History Surgical History H/O bilateral inguinal hernia repair H/O prostatectomy Family History Family History Father Family history of liver disease Mother Family history of malignant neoplasm Social History Social History Social History: Living at home with his . Does have kids in the area. 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 There is no relevant family history pertinent to the presenting complaint Exam Narrative: GENERAL:Elderly male, Well-appearing, well-nourished, and in no acute distress. HEAD: Normocephalic, atraumatic. NECK: Supple. no lymphadenopathy CHEST: Clear to auscultation. No respiratory distress.SAO2 100% on room air HEART: Irregular rate and rhythm, bradycardia initial HR in triage 40 bpm recheck with pulse rate noted to be 60 bpm, does have history of atrial fibrillation is on daily blood thinner. No murmur heard. Normal peripheral pulses. EXTREMITIES: Normal range of motion. No edema. SKIN: Warm, dry, no rash. Reports 4cm linear laceration across the proximal upper thumb region/hand, has full mobility of all fingers, strong left radial pulse, bleeding controlled by patient's pressure dressing on arrival. NEURO: No focal deficits. Alert and oriented x3. Course Course Level of Care: Express Care Visit Vital Signs Vital signs: Vital Signs Temperature 37.1 C 03/14/25 11:08 Pulse Rate 40 L 03/14/25 11:08 Respiratory Rate 16 03/14/25 11:08 Blood Pressure 129/68 03/14/25 11:08 Pulse Oximetry 100 03/14/25 11:08 Temperature 37.1 C 03/14/25 11:08 Pulse Rate 66 03/14/25 13:00 Respiratory Rate 16 03/14/25 11:08 Blood Pressure 129/68 03/14/25 11:08 Pulse Oximetry 100 03/14/25 11:08 reviewed Procedures Laceration proximal thumb/hand: Date: 03/14/25 Time: 12:00 Site: hand (upper proximal thumb/hand) Side (If applicable): left Size (cm): 4 Description: linear Depth: simple, single layer Local Anesthetic: lidocaine 1% Amount of anesthesia used (mL): 8 Pre-repair: wound explored, irrigated extensively and other (wound cleanser) ====== Skin Level ====== Skin layer closed with: nylon Size (cm): 4-0 Number of sutures: 8 Technique: simple, interrupted ====== Subcutaneous Layer ====== ====== Muscle Layer ====== ====== Tendon Layer ====== Dressing: wound cleansed and irrigated extensively bleeding controlled, localized with 8 ml of Lidocaine 1%, sutures applied total of 8 simple interrupted sutures using Ethilon 4.0 suture. Patient tolerated well. bruising note to area around wound patient is on daily coumadin. Patient did receive updated tetanus while in clinic. Dressing applied by nursing staff of gauze and Coban wrap to site. Post care instructions reviewed with patient and son with understanding verbalized. MDM - Wound/Laceration MDM Narrative Medical decision making narrative: Wound explored for foreign body and copious irrigation provided with no evidence of FB. Discussed the potential of retained foreign body with the patient and signs/symptoms that should prompt the patient to immediately go to the ED for reevaluation. The wound was explored and no foreign bodies were found. There was no evidence of tendon or nerve lacerations. The wound was closed per procedure note. A sterile dressing was then applied and anticipatory guidance was provided. Tetanus prophylaxis was given. Differential Diagnosis Differential diagnosis: Likely laceration, abrasion, avulsion of skin and other (laceration of left thumb) Medical Records Attestation: I reviewed the patient's medical records. Critical Care Time Critical Care Time Critical Care Time: No Discharge Plan Discharge Clinical Impression: Laceration of left thumb Qualifiers: Encounter type: initial encounter Damage to nail status: without damage Foreign body presence: without foreign body Qualified Code(s): S61.012A - Laceration without foreign body of left thumb without damage to nail, initial encounter Patient Disposition: Home Condition: Stable Instructions: Antibiotic Form, Laceration (ED) Additional Instructions: Keep the area clean and dry No continuous water contact like dishes or swimming You may bathe and wash you hair caution with hair products or lotions Antibiotic ointment to the area 1 time daily use bacitracin dressing of choice watch for infection--redness, swelling, drainage follow up with PCP for suture/staple in removal 10 days recheck with PCP if further concerns or problems antibiotic as prescribed If your symptoms persist, change or worsen significantly before you can contact your personal physician then please, without delay, go to the emergency department for further evaluation. Follow-up with PCP in 7-10 days or sooner if needed Follow up with PCP soon in regards to your blood pressure which is elevated above threshold for referral. Blood pressure above 120/80 may indicate pre- hypertension. 129/68 Patient Language: Romanian Prescriptions: New cephalexin 500 mg capsule 500 mg PO Q12H Qty: 14 0RF No Action atorvastatin 20 mg tablet 20 mg PO DAILY warfarin 4 mg tablet 4 mg PO DAILY Rx Instructions: TAKES DAILY EXCEPT FOR THURSDAY AND THURSDAY acetaminophen [Tylenol] 325 mg tablet 325 mg PO Q6H PRN vitamin B complex Capsule 1 cap PO DAILY calcium carbonate 260 mg calcium (648 mg) tablet 260 mg PO DAILY zinc citrate, zinc oxide 50 mg tablet PO ascorbic acid (vitamin C) 1,000 mg capsule 1 g PO DAILY meclizine 25 mg tablet 12.5 mg .ROUTE .COMPLEX Rx Instructions: 12.5 mg; cholecalciferol (vitamin D3) 10 mcg (400 unit) capsule 10 mcg PO DAILY Follow-up/Referrals: PHYSICIAN,[employer]ER [Primary Care Provider] - Time of Disposition: 12:55 Quality Chasity Coma Scale Eyes: Open Verbal: Oriented and Alert Motor: Follows Commands [place] Coma Total Score: 15
[2025-03-14] MEDS: LIDOCAINE 1% LOCAL INJ 2 ML AMPUL 8 ML INFILTRATE (11:35)
[2025-03-14 13:00] VITALS: PULSE 66
[2025-03-14] MEDS: TETANUS/DIPHTHERIA TOXOIDS ADSORB 0.5 ML SYRINGE (*BKC) IM (13:01)
== END 2025-03-14 13:00 | disposition home or self-care (01) ==
PROVIDERS: Emergency Provider Registered Nurse
DX: S61.012A Laceration without foreign body of left thumb without damage to nail, initial encounter (principal); W27.0XXA Contact with workbench tool, initial encounter; I48.0 Paroxysmal atrial fibrillation; Z79.01 Long term (current) use of anticoagulants; I10 Essential (primary) hypertension; E78.5 Hyperlipidemia, unspecified; Z85.51 Personal history of malignant neoplasm of bladder; Z85.46 Personal history of malignant neoplasm of prostate; Z90.79 Acquired absence of other genital organ(s); Z86.73 Personal history of transient ischemic attack (TIA), and cerebral infarction without residual deficits
CPT/HCPCS: 12002; 90471; 90714; 99213; G0463; J2003

== ENCOUNTER 2025-04-13 09:18 | Outpatient (RCR) | payer MEDICARE, SELFPAY ==
[2025-02-09 17:46] LABS: INR 2.1; Prothrombin Time 23.7 Seconds (11.1-14.7)
[2025-03-09 09:57] LABS: INR 2.4; Prothrombin Time 26.7 Seconds (11.1-14.7)
[2025-04-13 09:55] LABS: INR 2.1; Prothrombin Time 23.1 Seconds (11.1-14.7)
== END 2025-05-10 23:59 | disposition home or self-care (01) ==
LOC: ANHLAB 09:18
PROVIDERS: PCP Family Medicine; Visit Provider Internal Medicine Cardiovascular Disease
DX: Z51.81 Encounter for therapeutic drug level monitoring (principal); Z79.01 Long term (current) use of anticoagulants
CPT/HCPCS: 36415; 85610

== ENCOUNTER 2025-07-12 15:49 | Outpatient (RCR) | payer MEDICARE, SELFPAY ==
[2025-05-16 09:49] LABS: INR 2.0; Prothrombin Time 22.4 Seconds (11.1-14.7)
[2025-06-13 16:55] LABS: INR 2.2; Prothrombin Time 23.7 Seconds (11.1-14.7)
[2025-07-12 16:39] LABS: INR 2.2; Prothrombin Time 24.1 Seconds (11.1-14.7)
== END 2025-08-10 12:54 | disposition home or self-care (01) ==
LOC: ANHLAB 15:49
PROVIDERS: PCP Family Medicine; Visit Provider Internal Medicine Cardiovascular Disease
DX: Z51.81 Encounter for therapeutic drug level monitoring (principal); Z79.01 Long term (current) use of anticoagulants
CPT/HCPCS: 36415; 85610

== ENCOUNTER 2025-10-12 13:36 | Outpatient (RCR) | payer MEDICARE, SELFPAY ==
[2025-08-10 13:31] LABS: INR 2.2; Prothrombin Time 24.1 Seconds (11.1-14.7)
[2025-09-14 10:52] LABS: INR 2.1; Prothrombin Time 23.2 Seconds (11.1-14.7)
[2025-10-12 13:59] LABS: INR 2.2; Prothrombin Time 24.2 Seconds (11.1-14.7)
== END 2025-11-08 23:59 | disposition home or self-care (01) ==
LOC: ANHLAB 13:36
PROVIDERS: PCP Family Medicine; Visit Provider Internal Medicine Cardiovascular Disease
DX: Z51.81 Encounter for therapeutic drug level monitoring (principal); I48.0 Paroxysmal atrial fibrillation; Z79.01 Long term (current) use of anticoagulants
CPT/HCPCS: 36415; 85610